=== PATIENT | female | born 1965 | race Caucasian/White ===

== ENCOUNTER 2016-12-02 14:20 | Emergency (ER) | payer OTHER, BC ==
[2016-12-02 14:35] VITALS: PULSE 72; RESP 20; TEMP 97.8
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
[2016-12-02] MEDS ORDERED: MORPHINE SULFATE 4 MG/ML SYRINGE IV STA (17:19)
--- NOTE | 2016-12-02 17:33 | XR ---
EXAMINATION TYPE: XR Hip RT and AP Pelvis DATE OF EXAM: 12/02/2016 5:28 PM COMPARISON: 08/11/2013 HISTORY: Right hip pain TECHNIQUE: A single AP view of the pelvis is obtained. Two views of the right hip are obtained. Findings The pelvic ring is intact. Proximal right femur and hip joint are intact. There is mild symmetric rossi tabular spurring. Sacroiliac joints are normal. CONCLUSION: Mild spurring of the acetabula. No fracture. No change compared to old exam.
[2016-12-02 17:56] VITALS: BP 177/83
== END 2016-12-02 17:56 | disposition home or self-care (01) ==
LOC: EC 14:20
DX: S06.0X0A Concussion without loss of consciousness, initial encounter (principal); S46.911A Strain of unspecified muscle, fascia and tendon at shoulder and upper arm level, right arm, initial encounter; S70.01XA Contusion of right hip, initial encounter; V49.49XA Driver injured in collision with other motor vehicles in traffic accident, initial encounter; Y92.410 Unspecified street and highway as the place of occurrence of the external cause; E11.9 Type 2 diabetes mellitus without complications; Z88.5 Allergy status to narcotic agent; K21.9 Gastro-esophageal reflux disease without esophagitis; I10 Essential (primary) hypertension; Z87.891 Personal history of nicotine dependence; Z79.899 Other long term (current) drug therapy; Z79.84 Long term (current) use of oral hypoglycemic drugs
CPT/HCPCS: 71020; 73502; 71100; 73030; 72125; 70450; 99284; 96372; J2270

== ENCOUNTER → 2016-12-19 | Outpatient (CLI) | payer OTHER ==
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
== END | disposition home or self-care (01) ==
LOC: RADCTMAIN 15:34
PROVIDERS: ATTEND Internal Medicine
DX: S79.911A Unspecified injury of right hip, initial encounter (principal)

== ENCOUNTER → 2017-01-06 | Outpatient (CLI) | payer OTHER ==
--- NOTE | 2017-01-06 09:13 | MR ---
EXAMINATION TYPE: MR hip RT wo con DATE OF EXAM: 01/06/2017 8:36 AM COMPARISON: NONE HISTORY: 51-year-old female Right hip pain, swelling, limited movement. TECHNIQUE: Multiplanar, multisequence images of the right hip were obtained without IV contrast. FINDINGS: No abnormal bone marrow edema within the hips. SI joints appear intact as does the sacrum. Evaluation of the right hip shows an area of curvilinear subchondral increased T2 and decreased T1 si gnal along the weightbearing aspect of the femoral head measuring 1.4 cm AP by 1.1 cm wide. This loca lizes to the subchondral bone. There is no discrete articular surface collapse seen. There is a small right hip joint effusion, asymmetrically greater to the contralateral side. The rectus femoris and hamstrings origins as well as the iliopsoas and gluteal insertions appear with in normal limits. There is normal course, caliber, and signal intensity of the sciatic nerves. No significant soft tiss ue abnormality seen. Uterus is surgically absent. There is a 3.0 cm simple cystic lesion associated with the left ovary. N o abnormal fluid collection in the pelvis. IMPRESSION: 1. A 1.4 cm curvilinear area of subchondral signal along the weightbearing aspect of the right femora l head. As this shows no surrounding bone marrow edema, differential considerations include an old in sufficiency/impaction fracture or a small area of prior AVN. Radiographic correlation may be helpful. A six-month follow-up MRI could assess any evolving changes. 2. Asymmetrically greater small right hip joint effusion. 3. A 3.0 cm simple left ovarian cyst. In a postmenopausal female, annual ultrasound surveillance is r ecommended.
== END | disposition home or self-care (01) ==
LOC: RADMRIMAIN 06:37
PROVIDERS: ATTEND Internal Medicine
DX: M25.451 Effusion, right hip (principal)

== ENCOUNTER → 2017-12-11 | Outpatient (CLI) | payer BC ==
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
== END | disposition home or self-care (01) ==
LOC: RADMRIMAIN 17:32
PROVIDERS: ATTEND Internal Medicine
DX: S83.242A Other tear of medial meniscus, current injury, left knee, initial encounter (principal); M25.862 Other specified joint disorders, left knee

== ENCOUNTER → 2018-10-26 | Outpatient (CLI) | payer OTHER ==
--- NOTE | 2018-10-30 11:45 | MM ---
Reason for exam: screening (asymptomatic). Last mammogram was performed 3 years ago. History: Patient is postmenopausal, has history of high-risk lesion on a previous biopsy at age 39, and is nulliparous. Left US Cyst Aspiration Ea Add of the left breast, October 19, 2010. Left US Cyst Aspiration of the left breast, October 19, 2010. Excisional biopsy of the left breast, April 12, 2007. High risk excisional biopsy of the left breast, 2003. Physical Findings: A clinical breast exam by your physician is recommended on an annual basis and results should be correlated with mammographic findings. MG Screening Mammo w CAD Bilateral CC and MLO view(s) were taken. Prior study comparison: October 21, 2015, right breast MG 3d work up w/cad RT. October 16, 2015, bilateral MG 3d screening mammo w/cad. The breast tissue is heterogeneously dense. This may lower the sensitivity of mammography. Focal asymmetry upper outer left breast middle third position. This finding is changed when compared with previous exams. ASSESSMENT: Incomplete: need additional imaging evaluation, BI-RAD 0 RECOMMENDATION: Special view mammogram of the left breast. If lesion persists on supplemental views, image directed ultrasound is recommended. [facility] will attempt to contact patient to return for supplemental views and ultrasound if indicated.
== END | disposition home or self-care (01) ==
LOC: RADMAMWWP 08:18
PROVIDERS: ATTEND Internal Medicine
DX: Z12.31 Encounter for screening mammogram for malignant neoplasm of breast (principal)
CPT/HCPCS: 77067

== ENCOUNTER 2018-11-05 08:21 | Emergency (ER) | payer OTHER ==
[2018-11-05 08:26] VITALS: TEMP 97.7
[2018-11-05] MEDS ORDERED: ETOMIDATE 2 MG/ML 10 ML VIAL IVP STA ×2 (08:50→09:18)
--- NOTE | 2018-11-05 09:02 | XR ---
Left ankle and left foot HISTORY: Trauma and pain 2 views of the left foot and 3 views of the left ankle are submitted. There is a posterior dislocation and likely associated trimalleolar fracture at the left tibiotalar j oint, minimally displaced fractures of the medial malleolus, posterior displacement at the distal fib ular comminuted fracture noted. Posterior aspect of the distal tibia shows questionable irregularity which may indicate underlying fracture. There is a plantar calcaneal spur. IMPRESSION: Fractures dislocation as described.
[2018-11-05 09:30] VITALS: RESP 18
--- NOTE | 2018-11-05 09:38 | ED ---
General Adult HPI - General Chief complaint: Extremity Injury, Lower Stated complaint: fall/ankle injury Time Seen by Provider: 11/05/18 09:00 Source: patient, EMS, RN notes reviewed Mode of arrival: EMS Limitations: no limitations - History of Present Illness Initial comments: This is a 53-year-old female who presents to the emergency department complaining of left ankle pain. Patient states she was coming out of the house down some steps when her ankle slipped out in front of her and she was unable to bear weight. Patient had a gross deformity and she mainly called EMS. EMS stated that they noticed gross deformities well however she was neurovascularly intact. Patient did receive fentanyl on the way in. Patient denies any knee pain or hip pain. Patient denies hitting her head or neck. Patient states he only pain is in her left ankle. - Related Data Home Medications Medication Instructions Recorded Confirmed Atenolol [Tenormin] 25 mg PO DAILY 10/14/14 11/05/18 Escitalopram [Lexapro] 10 mg PO DAILY 10/14/14 11/05/18 Omeprazole [PriLOSEC] 40 mg PO DAILY 10/14/14 11/05/18 Atorvastatin [Lipitor] 10 mg PO DAILY 11/05/18 11/05/18 Pioglitazone [Actos] 30 mg PO DAILY 11/05/18 11/05/18 Previous Rx's Medication Instructions Recorded Hydrocodone/Acetaminophen [[place] 1 each PO Q4HR PRN #14 tab 11/05/18 5-325] Ibuprofen [Motrin] 600 mg PO Q6HR PRN #20 tab 11/05/18 Allergies Allergy/AdvReac Type Severity Reaction Status Date / Time hydrocodone bitartrate Allergy flushed Verified 11/05/18 08:49 [From Vicodin] skin adhesive AdvReac blisters Verified 11/05/18 08:49 steri strips AdvReac blisters Uncoded 11/05/18 08:26 Review of Systems ROS Statement: Those systems with pertinent positive or pertinent negative responses have been documented in the HPI. ROS Other: All systems not noted in ROS Statement are negative. Past Medical History Past Medical History: Diabetes Mellitus, GERD/Reflux, Hypertension Additional Past Medical History / Comment(s): hx migraines,hx heart murmur, diet controlled diabetes History of Any Multi-Drug Resistant Organisms: None Reported Past Surgical History: Hysterectomy, Orthopedic Surgery Additional Past Surgical History / Comment(s): knee & ankle surg. breast biopsy Past Anesthesia/Blood Transfusion Reactions: Postoperative Nausea & Vomiting ( PONV) Additional Past Anesthesia/Blood Transfusion Reaction / Comment(s): slow to wake up @times Past Psychological History: No Psychological Hx Reported Smoking Status: Former smoker Past Alcohol Use History: None Reported Past Drug Use History: None Reported General Exam - General Exam Comments Initial Comments: GENERAL: Patient is well-developed and well-nourished. Patient is nontoxic and well- hydrated and is in moderate distress. ENT: Neck is soft and supple. No significant lymphadenopathy is noted. Oropharynx is clear. Moist mucous membranes. Neck has full range of motion without eliciting any pain. EYES: The sclera were anicteric and conjunctiva were pink and moist. Extraocular movements were intact and pupils were equal round and reactive to light. Eyelids were unremarkable. PULMONARY: Unlabored respirations. Good breath sounds bilaterally. No audible rales rhonchi or wheezing was noted. CARDIOVASCULAR: There is a regular rate and rhythm without any murmurs gallops or rubs. y SKIN: Skin is clear with no lesions or rashes and otherwise unremarkable. NEUROLOGIC: Patient is alert and oriented x3. Cranial nerves II through XII are grossly intact. Motor and sensory are also intact. Normal speech, volume and content. Symmetrical smile. MUSCULOSKELETAL: Left ankle looks grossly deformed she does have good cap refill and a good DP pulse. PSYCHIATRIC: Normal psychiatric evaluation. Limitations: no limitations Course Vital Signs 11/05/18 11/05/18 11/05/18 08:24 09:08 09:12 Temperature 97.7 F Pulse Rate 66 76 88 Respiratory 18 18 18 Rate Blood Pressure 152/76 175/73 203/120 O2 Sat by Pulse 95 98 100 Oximetry 11/05/18 11/05/18 11/05/18 09:21 09:24 09:29 Temperature Pulse Rate 81 81 79 Respiratory 24 20 18 Rate Blood Pressure 164/79 162/87 149/71 O2 Sat by Pulse 99 100 97 Oximetry Procedures - Orthopedic Fracture Reduction Fracture #1 Consent Obtained: verbal consent Side: left Analgesia: procedural sedation Technique: traction/counter-traction Post Reduction X-rays Demonstrate: anatomical reduction Post-Reduction Neuro Exam: intact Post-Reduction Vascular Exam: intact Splint Applied: Yes Patient Tolerated Procedure: well - Orthopedic Splinting/Casting Injury #1 Side: left Lower Extremity Injury Location: long leg Lower Extremity Immobilizer: stirrup splint - Procedural Sedation Procedural Sedation Start Time: 09:10 Procedural Sedation Stop Time: :40 Indications: fracture/dislocation reduction ASA Class: I Preparation: nurse monitoring applied, pulse oximeter, capnometry used IV Etomidate Dose (mgs): 20 Complications: none Patient Tolerated Procedure: well Medical Decision Making - Medical Decision Making Ankle shows a trimalleolar fracture with dislocation between the tibia and talus. Postreduction films show good placement of the tibial talus joint. Close to anatomically reduced I applied a splint. Disposition Clinical Impression: Trimalleolar fracture Disposition: HOME SELF-CARE Condition: Good Prescriptions: Hydrocodone/Acetaminophen [[place] 5-325] 1 each PO Q4HR PRN #14 tab PRN Reason: Pain Ibuprofen [Motrin] 600 mg PO Q6HR PRN #20 tab PRN Reason: For pain Is patient prescribed a controlled substance at d/c from ED?: Yes When asked, does pt state using other controlled substances?: Yes If prescribed controlled substance>3 days was MAPS reviewed?: Prescribed <3 Days If opioid is for acute pain is fill amount 7 days or less?: Yes If Rx opioid, was Start Talking consent form obtained?: Yes Referrals: Paulino Yates MD [Primary Care Provider] - 1-2 days Time of Disposition: 09:38
--- NOTE | 2018-11-05 09:40 | XR ---
Limited left ankle HISTORY: Post reduction 2 views of the left ankle There is been interval reduction of patient's dislocation. Persistent displacement of the posterior m alleolar fracture, medial and lateral malleolar fractures. IMPRESSION: Interval reduction of tibiotalar joint. Trimalleolar fractures.
[2018-11-05 10:26] VITALS: BP 144/71; PULSE 65
== END 2018-11-05 10:23 | disposition home or self-care (01) ==
LOC: EC 08:21
DX: S82.852A Displaced trimalleolar fracture of left lower leg, initial encounter for closed fracture (principal); I10 Essential (primary) hypertension; E11.9 Type 2 diabetes mellitus without complications; K21.9 Gastro-esophageal reflux disease without esophagitis; Z87.891 Personal history of nicotine dependence; Z88.5 Allergy status to narcotic agent; Z91.048 Other nonmedicinal substance allergy status; Z79.84 Long term (current) use of oral hypoglycemic drugs; Z79.899 Other long term (current) drug therapy; W01.0XXA Fall on same level from slipping, tripping and stumbling without subsequent striking against object, initial encounter; Y93.K1 Activity, walking an animal; Y92.008 Other place in unspecified non-institutional (private) residence as the place of occurrence of the external cause
CPT/HCPCS: 27818; 99152; 99153; 99284

== ENCOUNTER → 2018-11-15 | Outpatient (CLI) | payer OTHER ==
--- NOTE | 2018-11-29 13:19 | MM ---
Reason for exam: additional evaluation requested from abnormal screening. Last mammogram was performed 1 month ago. History: Patient is postmenopausal, has history of high-risk lesion on a previous biopsy at age 39, and is nulliparous. Left US Cyst Aspiration Ea Add of the left breast, October 19, 2010. Left US Cyst Aspiration of the left breast, October 19, 2010. Excisional biopsy of the left breast, April 12, 2007. High risk excisional biopsy of the left breast, 2003. Physical Findings: Nurse did not find any significant physical abnormalities on exam. MG Work Up Mamm w CAD LT Spot compression CC, MLO, and LM view(s) were taken of the left breast. Prior study comparison: October 26, 2018, bilateral MG screening mammo w CAD. October 21, 2015, right breast MG 3d work up w/cad RT. There is no discrete abnormality including area of concern. These results were verbally communicated with the patient and result sheet given to the patient on 11/15/18. ASSESSMENT: Probably benign, BI-RAD 3 RECOMMENDATION: Follow-up diagnostic mammogram of the left breast in 6 months.
== END | disposition home or self-care (01) ==
LOC: RADMAMWWP 13:40
PROVIDERS: ATTEND Internal Medicine
DX: R92.8 Other abnormal and inconclusive findings on diagnostic imaging of breast (principal)
CPT/HCPCS: 77065

== ENCOUNTER → 2018-11-19 | Outpatient (CLI) | payer OTHER ==
--- NOTE | 2018-11-19 08:42 | CT ---
EXAMINATION TYPE: CT ankle LT wo con DATE OF EXAM: 11/19/2018 COMPARISON: Left ankle x-ray November 05, 2018 HISTORY: Pain CT DLP: 240 mGycm Automated exposure control for dose reduction was used. FINDINGS: Overlying cast material is present. There is oblique distracted fracture through the lateral malleolus extending anteriorly inferiorly wi th 4 to 5 mm separation seen best on sagittal images. A few tiny fragments along posterior superior a spect of fracture are noted axial image 48. Fracture extends inferiorly to level of mortise were best seen on coronal images there is 2.5 mm linear ossific fracture fragment noted coronal image 30. There is comminuted slightly displaced fracture through the medial malleolus with several small fract ure fragments identified, some tiny fracture fragments extend towards the posterior aspect of the mor tise on axial image 63 and coronal image 37. There is comminuted fracture extension into the posterior malleolus with 2.2 x 0.8 cm triangular shap ed fracture fragment slightly posteriorly and superiorly displaced seen best sagittal image 44. Mild to moderate diffuse subcutaneous edema soft tissue swelling is seen most prominent over the late ral malleolus. Hindfoot and midfoot articulations are maintained. Distal Achilles tendon is intact. T here is moderate size inferior calcaneal spur seen. Normal sinus tarsi fat is noted. IMPRESSION: TRIMALLEOLAR FRACTURES DETAILED ABOVE.
== END ==
LOC: RADCTMAIN 07:00
PROVIDERS: ATTEND Orthopaedic Surgery
DX: S82.852A Displaced trimalleolar fracture of left lower leg, initial encounter for closed fracture (principal)

== ENCOUNTER → 2018-11-23 | Outpatient (CLI) | payer OTHER ==
[2018-11-23 14:26] LABS: HCT 43.3 % (34.0-46.0); HGB 14.2 gm/dL (11.4-16.0); MCH 29.2 pg (25.0-35.0); MCHC 32.9 g/dL (31.0-37.0); MCV 88.9 fL (80.0-100.0); Mean Platelet Volume 6.9; Platelet Count 277 k/uL (150-450); RBC 4.87 m/uL (3.80-5.40); RDW 12.6 % (11.5-15.5); WBC 5.2 k/uL (3.8-10.6)
== END ==
LOC: LABPAT 13:21
PROVIDERS: ATTEND Orthopaedic Surgery
DX: Z01.818 Encounter for other preprocedural examination (principal); Z01.812 Encounter for preprocedural laboratory examination
CPT/HCPCS: 85027; 93005

== ENCOUNTER 2018-11-26 12:22 | Day surgery (SDC) | payer OTHER ==
[2018-11-23 09:03] VITALS: BMI 33.1
[~2018-11-26 12:22] MED LIST: DEXAMETHASONE SOD PHOSPHATE 10 MG/ML 1 ML VIAL IV ONE; LACTATED RINGERS 1,000 ML IV SCH; LIDOCAINE 1% 20 ML VIAL (10MG/ML) FOR IV START INTRADERMA PRN; MIDAZOLAM (PF) 2 MG/2 ML VIAL IV PRN; ceFAZolin IN SWFI 2 GM/20 ML SYRINGE IVP ONE; fentaNYL (PF) 50 MCG/ML 2 ML AMP IV PRN; fentaNYL (PF) 50 MCG/ML 20 ML VIAL IVP PRN
[2018-11-26] MEDS ORDERED: LIDOCAINE 1% 20 ML VIAL (10MG/ML) FOR IV START IV ONE (12:45)
[2018-11-26 13:01] LABS: Glucose,Whole Blood 137 mg/dL (75-99)
[2018-11-26] MEDS ORDERED: MIDAZOLAM 2 MG/2 ML VIAL IV ONE (13:54)
[2018-11-26] MEDS ORDERED: ONDANSETRON 4 MG/2 ML VIAL IVP ONE ×2 (14:15→18:03)
[2018-11-26] MEDS ORDERED: DEXAMETHASONE SOD PHOSPHATE 10 MG/ML 1 ML VIAL IV ONE (14:15)
[2018-11-26 14:18] VITALS: RESP 16
--- NOTE | 2018-11-26 14:20 | P.HPOR ---
History of Present Illness H&P Date: 11/26/18 The patient is a 53 yo female with DM2 who presents for operative fixation of a left ankle fracture. Past Medical History Past Medical History: Diabetes Mellitus, GERD/Reflux, Hyperlipidemia, Hypertension Additional Past Medical History / Comment(s): Hx migraines, hx heart murmur, diet controlled diabetes. History of Any Multi-Drug Resistant Organisms: None Reported Past Surgical History: Breast Surgery, Cholecystectomy, Hysterectomy, Orthopedic Surgery Additional Past Surgical History / Comment(s): Right knee & right ankle surgery , breast biopsy. Past Anesthesia/Blood Transfusion Reactions: Postoperative Nausea & Vomiting ( PONV) Additional Past Anesthesia/Blood Transfusion Reaction / Comment(s): Slow to wake up @times. Past Psychological History: Anxiety Smoking Status: Former smoker Past Alcohol Use History: Rare Additional Past Alcohol Use History / Comment(s): Quit smoking in 1999, smoked on and off for 22 yrs, <1PPD. Past Drug Use History: None Reported - Past Family History Mother Family Medical History: No Reported History Medications and Allergies Home Medications Medication Instructions Recorded Confirmed Type Atenolol [Tenormin] 25 mg PO QAM 10/14/14 11/26/18 History Escitalopram [Lexapro] 10 mg PO QAM 10/14/14 11/26/18 History Omeprazole [PriLOSEC] 40 mg PO QAM 10/14/14 11/26/18 History Atorvastatin [Lipitor] 10 mg PO QAM 11/05/18 11/26/18 History Ibuprofen [Motrin] 600 mg PO Q6HR PRN #20 tab 11/05/18 11/26/18 Rx Pioglitazone [Actos] 30 mg PO QAM 11/05/18 11/26/18 History Acetaminophen-Codeine 300-30mg 1 tab PO Q4-6H PRN 11/23/18 11/26/18 History [Tylenol w/codeine #3] Allergies Allergy/AdvReac Type Severity Reaction Status Date / Time hydrocodone bitartrate Allergy flushed Verified 11/26/18 12:49 [From Vicodin] skin latex Allergy Rash/Hives Verified 11/26/18 12:49 adhesive AdvReac blisters Verified 11/26/18 12:49 steri strips AdvReac blisters Uncoded 11/26/18 12:49 Physical Examination Left LE: Splint removed. Wrinkling of the skin. Results - Labs Labs: Abnormal Lab Results - Last 24 Hours (Table) 11/26/18 Range/Units 12:55 POC Glucose (mg/dL) 137 H (75-99) mg/dL Assessment and Plan (1) Trimalleolar fracture Current Visit: No Status: Acute Code(s): S82.853A - DISPLACED TRIMALLEOLAR FRACTURE OF UNSP LOWER LEG, INIT SNOMED Code(s): 304801987 Plan: Patient presents for ORIF left trimalleolar ankle fracture. She understands the risks and complications of surgery.
--- NOTE | 2018-11-26 14:37 | P.ONQ ---
Anesthesiology Proc Note - PNB - Peripheral Nerve Block Performed Left Popliteal Single Indication: Acute Post-Operative Pain, Requested by physician Specifically requested for management of pain by : Sarath Rodriguez Sedation Type: Sedate with meaningful contact maintained Preparation: Sterile Prep Position: Supine Catheter: None Needle Size: 100mm (4"), Other (see comment) (Pajunk needle) Technique: Ultrasound Injectate: 0.5% Ropivacaine (see comment for volume) (20cc and 10cc lidocaine 2 % with epinephrine) Blood Aspirated: No Pain Paresthesia on Injection Noted: No Resistance on Injection: Normal Events: Uneventful and Well Tolerated
--- NOTE | 2018-11-26 14:39 | P.ONQ ---
Anesthesiology Proc Note - PNB - Peripheral Nerve Block Performed Left Adductor Canal Single Time Out Performed: Yes Indication: Acute Post-Operative Pain, Dx/Pain Location (left ankle) Specifically requested for management of pain by DrAugustine: Sarath Rodriguez Sedation Type: Sedate with meaningful contact maintained Preparation: Sterile Prep Position: Supine Catheter: None Needle Size: 100mm (4"), Other (see comment) (pajunk) Needle Gauge: 21 Technique: Ultrasound Injectate: 0.5% Ropivacaine (see comment for volume) (10cc and lidocaine 2% with epinephrine) Blood Aspirated: No Pain Paresthesia on Injection Noted: No Resistance on Injection: Normal Events: Uneventful and Well Tolerated
[2018-11-26] MEDS ORDERED: ROCURONIUM BROMIDE 10 MG/ML 10 ML VIAL IV ONE (15:06)
[2018-11-26] MEDS ORDERED: NEOSTIGMINE 1 MG/ML 10 ML VIAL ONE (15:06)
[2018-11-26] MEDS ORDERED: MIDAZOLAM 2 MG/2 ML VIAL ONE (15:06)
[2018-11-26] MEDS ORDERED: LIDOCAINE 1% INJ 10MG/ML (20 ML MDV) ONE (15:06)
[2018-11-26] MEDS ORDERED: ePHEDrine SULFATE/0.9% NACL/PF 50 MG/5 ML SYRINGE IV ONE (15:06)
[2018-11-26] MEDS ORDERED: SUCCINYLCHOLINE CHLORIDE 100 MG/5 ML SYR IV ONE (15:06)
[2018-11-26] MEDS ORDERED: fentaNYL (PF) 50 MCG/ML 2 ML AMP ONE (15:06)
[2018-11-26] MEDS ORDERED: HYDROmorphone (PF) 1 MG/ML ONE (15:06)
[2018-11-26] MEDS ORDERED: PROPOFOL 10 MG/ML 20 ML VIAL IV ONE (15:06)
[2018-11-26] MEDS ORDERED: GLYCOPYRROLATE 0.2 MG/ML 2 ML VIAL ONE (15:06)
[2018-11-26] MEDS ORDERED: LACTATED RINGERS 1,000 ML IV ONE ×2 (16:08→18:04)
--- NOTE | 2018-11-26 16:48 | P.OP ---
Date of Procedure: 11/26/18 Preoperative Diagnosis: 1. Closed left trimalleolar ankle fracture dislocation 2. Type 2 diabetes 3. Prior cigarette smoker Postoperative Diagnosis: Same Procedure(s) Performed: 1. Open reduction and internal fixation of left lateral malleolus fracture 2. Nonoperative management of left medial and posterior malleolus fracture 3. Manual application of joint stress by physician for radiography, left ankle 4. Application of short-leg splint by physician, left ankle Anesthesia: RAMYA Surgeon: Sarath Rodriguez Machine Printer Hose #1: Hyacinth Palm Estimated Blood Loss (ml): 25 IV fluids (ml): 900 Pathology: none sent Condition: stable Disposition: PACU Indications for Procedure: The patient is a very pleasant 53-year-old female with a medical history significant for diabetes presented to my office with a left trimalleolar ankle fracture dislocation. She was sent for a computed tomography scan. I met with the patient following her computed tomography scan to discuss surgery. Due to the unstable nature of her fracture I recommended operative fixation. We discussed potential risks and complications of surgery including but not limited to risk of anesthesia, superficial infection, deep infection, delayed wound healing, superficial wound necrosis, deep wound necrosis, nonunion of her fracture, malunion of her fracture, postoperative displacement of the ankle mortise, failure of hardware, DVT, PE, other medical complications, posttraumatic arthritis, chronic pain, chronic swelling, and inability to regain preinjury level of function, and possibly loss of life or limb. The patient voiced understanding of this and also acknowledges that she is at a higher risk having a complication due to her diabetes. She provided her verbal and written consent to go forward with surgery. Description of Procedure: The patient is identified in preoperative holding and the correct left ankle was marked with my initials. Reviewed the consent form with the patient and her family. All their questions were answered. The patient was given a popliteal and saphenous nerve block by anesthesia. Her splint was taken down and the soft tissues was inspected. There was wrinkling of the skin. She was then brought back to the operating room. She was positioned on the or table where a general anesthetic was administered. A tourniquet was applied to the proximal aspect the left leg. Prior to starting C-arm fluoroscopy was brought in and imaging was obtained. The ankle mortise was unstable. The medial and posterior malleolus was minimally displaced. The left leg was then prepped and draped in the standard sterile fashion. Prior to starting surgery timeout was performed identifying the correct patient, operative extremity, and procedure. The patient's leg was then elevated, exsanguinated with an Esmarch bandage, and the tourniquet was inflated to 250 mmHg. X I began by outlining an incision to the lateral aspect of the distal fibula. Skin incision with a scalpel and dissection was carried down carefully through the subcu tissue with tenotomy scissors. The periosteum was elevated off the distal fibula. The fracture site was gently debrided using a scalpel. The fracture was reduced using longitudinal traction and rotation. A point-to- point reduction clamp was used to gently brandt the fracture reduction in place and hold the reduction. Fluoroscopy was used to verify the reduction. The fibula appeared to be anatomically reduced and out to length. A lag screw was then placed across the fracture. A 2.7 mm drill bit was used to create a gliding hole of the anterior cortex of the shaft and a 2.0 mm drill was used to create threaded home the distal fragment. A fully threaded 2.7 mm screw was placed generated excellent compression across the fracture. And one third tubular plate was then placed over the lateral aspect of the distal fibula. 3.5 mm nonlocking screws were placed proximally to the fracture and 4.0 mm cancellus screws were placed distal to the fracture. At this point fluoroscopy was brought in to assess the medial and posterior fractures. On the mortise view there did not appear to be any significant displacement of the medial malleolus. On the lateral view the posterior malleolus appeared minimally displaced and there was no signs of instability. Due to the patient's diabetes and comminution seen on computed tomography scan as well as stability on stress x-rays in the operating room I elected to treat both the medial and posterior fractures nonoperatively. A 3.5 mm syndesmotic screw was placed for additional fixation. Final fluoroscopic images were taken. The lateral wound was copiously irrigated and closed in layers. A sterile dressing consisting of Betadine Adaptic, 4 x 4, and web roll was applied. A bulky Alicia splint was placed at the ankle neutral. The patient was then awoken from her anesthetic, transferred from the or table to a gurney, and brought to PACU without the procedure well. Hyacinth Palm PAC was required as a skilled hearing aid assistant for patient positioning, surgical exposure, reduction of fracture, placement of hardware, closure of wound, and application of splint. Plan: The patient is going to be nonweightbearing in a postoperative bulky Alicia splint. She'll follow-up in 2 weeks for splint removal and x-rays out of her splint. She'll be given aspirin 325 mg for DVT prophylaxis. She will get Tylenol No. 3 for pain.
[2018-11-26 17:14] VITALS: TEMP 97.2
--- NOTE | 2018-11-26 18:39 | FL ---
EXAMINATION TYPE: FL guidance operating room, XR ankle complete LT DATE OF EXAM: 11/26/2018 COMPARISON: NONE HISTORY: 53 year-old female left ankle ORIF FINDINGS: Lateral sideplate and screw fixation of the distal fibula as well as transit syndesmotic screw fixati on. FLUOROSCOPY Fluoroscopy time of 36 seconds was used during left ankle ORIF. 3 image/s document/s the procedure. IMPRESSION: Intraoperative fluoroscopy as above.
[2018-11-26 18:53] VITALS: BP 139/62; PULSE 72
== END 2018-11-26 19:06 | disposition home or self-care (01) ==
LOC: OR 12:22
PROVIDERS: ATTEND Orthopaedic Surgery
DX: S82.852A Displaced trimalleolar fracture of left lower leg, initial encounter for closed fracture (principal); E11.9 Type 2 diabetes mellitus without complications; E78.5 Hyperlipidemia, unspecified; F41.9 Anxiety disorder, unspecified; I10 Essential (primary) hypertension; K21.9 Gastro-esophageal reflux disease without esophagitis; Z87.891 Personal history of nicotine dependence; Z88.5 Allergy status to narcotic agent; Z79.84 Long term (current) use of oral hypoglycemic drugs; Z79.899 Other long term (current) drug therapy; Z91.040 Latex allergy status; Z91.048 Other nonmedicinal substance allergy status; Z90.49 Acquired absence of other specified parts of digestive tract; Z79.891 Long term (current) use of opiate analgesic
CPT/HCPCS: 27792; 64450; 64447; 73610; C1713; J2250; J1100; J2710; J2405; J2001; J3010; J1170; J0330; J2704; J0690

== ENCOUNTER 2020-03-25 10:17 | Emergency (ER) | payer OTHER ==
[2020-03-25] MEDS ORDERED: IBUPROFEN 800 MG TAB PO STA (10:50)
--- NOTE | 2020-03-25 10:54 | ED ---
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 She complains of pain to the left shoulder she states her arm when above her head when she landed. She points to the upper left anterior shoulder. No head neck or back pain no other injury reported. Patient is dominant left-handed. No sensorimotor or vascular complaints. She does state that the pain is 7/10 in severity. MD Complaint: Injury to:: left, shoulder - Related Data Home Medications Medication Instructions Recorded Confirmed Atenolol [Tenormin] 25 mg PO QAM 10/14/14 11/26/18 Escitalopram [Lexapro] 10 mg PO QAM 10/14/14 11/26/18 Omeprazole [PriLOSEC] 40 mg PO QAM 10/14/14 11/26/18 Atorvastatin [Lipitor] 10 mg PO QAM 11/05/18 11/26/18 Pioglitazone [Actos] 30 mg PO QAM 11/05/18 11/26/18 Acetaminophen-Codeine 300-30mg 1 tab PO Q4-6H PRN 11/23/18 11/26/18 [Tylenol w/codeine #3] Previous Rx's Medication Instructions Recorded Ibuprofen [Motrin] 600 mg PO Q6HR PRN #20 tab 11/05/18 Acetaminophen-Codeine 300-30mg 1 tab PO Q4H PRN 5 Days #30 tablet 11/26/18 [Tylenol w/codeine #3] Aspirin 325 mg PO DAILY #14 tab 11/26/18 Docusate [Colace] 100 mg PO BID #60 capsule 11/26/18 Ibuprofen 800 mg PO Q6HR PRN #20 tablet 03/25/20 Orphenadrine [Norflex] 100 mg PO Q12H #7 tablet.er 03/25/20 Allergies Allergy/AdvReac Type Severity Reaction Status Date / Time hydrocodone bitartrate Allergy flushed Verified 03/25/20 10:23 [From Vicodin] skin latex Allergy Rash/Hives Verified 03/25/20 10:23 adhesive AdvReac blisters Verified 03/25/20 10:23 steri strips AdvReac blisters Uncoded 03/25/20 10:23 Review of Systems ROS Statement: Those systems with pertinent positive or pertinent negative responses have been documented in the HPI. ROS Other: All systems not noted in ROS Statement are negative. Past Medical History Past Medical History: Diabetes Mellitus, GERD/Reflux, Hyperlipidemia, Hypertension Additional Past Medical History / Comment(s): Hx migraines, hx heart murmur, diet controlled diabetes. History of Any Multi-Drug Resistant Organisms: None Reported Past Surgical History: Breast Surgery, Cholecystectomy, Hysterectomy, Orthopedic Surgery Additional Past Surgical History / Comment(s): Right knee & right ankle surgery, breast biopsy.. left foot plate and screws Past Anesthesia/Blood Transfusion Reactions: Postoperative Nausea & Vomiting (PONV) Additional Past Anesthesia/Blood Transfusion Reaction / Comment(s): Slow to wake up @times. Past Psychological History: Anxiety Smoking Status: Former smoker Past Alcohol Use History: Rare Past Drug Use History: None Reported - Past Family History Mother Family Medical History: No Reported History General Exam - General Exam Comments Initial Comments: This is a well-developed well-nourished awake alert oriented 3 female she demonstrates a Yris Coma Scale of 15 Limitations: no limitations General appearance: alert, in no apparent distress Head exam: Present: atraumatic, normocephalic, normal inspection Eye exam: Present: normal appearance, PERRL, EOMI. Absent: scleral icterus, conjunctival injection, periorbital swelling ENT exam: Present: normal exam, mucous membranes moist Neck exam: Present: normal inspection, full ROM. Absent: tenderness, menin gismus, lymphadenopathy Respiratory exam: Present: normal lung sounds bilaterally, other (Tennis palpation along the left distal clavicle note definite step-off or crepitation). Absent: respiratory distress, wheezes, rales, rhonchi, stridor Cardiovascular Exam: Present: regular rate, normal rhythm, normal heart sounds. Absent: systolic murmur, diastolic murmur, rubs, gallop, clicks GI/Abdominal exam: Present: soft, normal bowel sounds. Absent: distended, tenderness, guarding, rebound, rigid Extremities exam: Present: normal inspection, full ROM, normal capillary refill, other (Tennis palpation of the proximal humerus and shoulder no evidence of subluxation no step-off or crepitation). Absent: tenderness, pedal edema, joint swelling, calf tenderness Back exam: Present: normal inspection, full ROM. Absent: tenderness Neurological exam: Present: alert, oriented X3, CN II-XII intact Psychiatric exam: Present: normal affect, normal mood Skin exam: Present: warm, dry, intact, normal color. Absent: rash Course Vital Signs 03/25/20 10:18 Temperature 98.5 F Pulse Rate 62 Respiratory 16 Rate Blood Pressure 150/72 O2 Sat by Pulse 97 Oximetry Medical Decision Making - Medical Decision Making I did discuss the findings with the patient she will be placed in a sling she'll be discharged with orthopedic referral. She has seen Dr. Rodriguez in the past. The presentation consistent with a left shoulder strain. He'll be given a note for work today. She is off for this coming weekend. She was placed on a course of anti-inflammatories and muscle relaxants. - Radiology Data Radiology results: report reviewed (I did review the imaging and report no acute findings.), image reviewed Disposition Clinical Impression: Left shoulder strain, Fall Disposition: HOME SELF-CARE Condition: Good Instructions (If sedation given, give patient instructions): Rotator Cuff Injury (ED) Prescriptions: Ibuprofen 800 mg PO Q6HR PRN #20 tablet PRN Reason: Pain Orphenadrine [Norflex] 100 mg PO Q12H #7 tablet.er Is patient prescribed a controlled substance at d/c from ED?: No Referrals: Paulino Yates MD [Primary Care Provider] - 1-2 days Sarath Rodriguez MD [Medical Doctor] - 1-2 days
--- NOTE | 2020-03-25 11:12 | XR ---
EXAMINATION TYPE: XR clavicle LT DATE OF EXAM: 03/25/2020 COMPARISON: Left shoulder HISTORY: Fall with pain TECHNIQUE: 2 view left clavicle FINDINGS: There is some hypertrophy at the left acromioclavicular junction. Sternal clavicular juncti on appears normal. No acute fractures of the left clavicle are evident. IMPRESSION: 1. No acute osseous abnormality left clavicle.
--- NOTE | 2020-03-25 11:13 | XR ---
EXAMINATION TYPE: XR shoulder complete LT DATE OF EXAM: 03/25/2020 COMPARISON: NONE HISTORY: Pain TECHNIQUE: Shoulder examined in 3 views FINDINGS: The humeral head articulates with the glenoid. The acromio-clavicular junction is hypertrophied. Some inferior spurring is noted. No acute fractures or dislocations are evident. A follow up study can be performed 7-10 days from acute trauma for continued pain. IMPRESSION: 1. No acute osseous abnormality left shoulder.
[2020-03-25 11:35] VITALS: BP 137/66; PULSE 58; RESP 18; TEMP 98.1
== END 2020-03-25 11:34 | disposition home or self-care (01) ==
LOC: EC 10:17
DX: S46.912A Strain of unspecified muscle, fascia and tendon at shoulder and upper arm level, left arm, initial encounter (principal); E11.9 Type 2 diabetes mellitus without complications; E78.5 Hyperlipidemia, unspecified; I10 Essential (primary) hypertension; K21.9 Gastro-esophageal reflux disease without esophagitis; F41.9 Anxiety disorder, unspecified; Z79.84 Long term (current) use of oral hypoglycemic drugs; Z79.899 Other long term (current) drug therapy; Z88.5 Allergy status to narcotic agent; Z88.6 Allergy status to analgesic agent; Z91.040 Latex allergy status; Z91.048 Other nonmedicinal substance allergy status; Z87.891 Personal history of nicotine dependence; W01.0XXA Fall on same level from slipping, tripping and stumbling without subsequent striking against object, initial encounter
CPT/HCPCS: 99283

== ENCOUNTER → 2020-04-07 | Outpatient (CLI) | payer OTHER ==
--- NOTE | 2020-04-08 18:10 | MR ---
EXAMINATION TYPE: MR shoulder LT wo con DATE OF EXAM: 04/07/2020 COMPARISON: None HISTORY: Lt shoulder pain/injury Technique: Multiplanar, multiecho imaging on a 3.0 Samra magnet is performed through the shoulder. Findings: Long head of the biceps tendon is within the bicipital groove. Glenoid labrum as visualized on this noncontrast study appears intact on this noncontrast limited exa m. Rotator cuff tendons are evaluated. No retraction or perforation is evident. No fluid in the subacro mial bursa or subdeltoid bursa is evident. No significant joint effusion is present. The acromioclavicular junction is hypertrophied. No downward spurring is evident however. IMPRESSIONS: 1. Suspicious acute changes not identified.
== END | disposition home or self-care (01) ==
LOC: RADMRIMAIN 09:19
PROVIDERS: ATTEND Emergency Medicine
DX: S43.402D Unspecified sprain of left shoulder joint, subsequent encounter (principal)

== ENCOUNTER → 2020-11-04 | Outpatient (CLI) | payer OTHER | END | disposition home or self-care (01) | LOC: LABWHC1 15:50 | PROVIDERS: ATTEND Internal Medicine | DX: U07.1 COVID-19 (principal) | CPT/HCPCS: 36415; U0003; 86769 ==

== ENCOUNTER → 2021-04-30 | Outpatient (CLI) | payer OTHER ==
--- NOTE | 2021-04-30 12:20 | MM ---
Reason for exam: additional evaluation requested from prior study. Last mammogram was performed 2 years and 5 months ago. History: Patient is postmenopausal, has history of high-risk lesion on a previous biopsy at age 39, and is nulliparous. Left US Cyst Aspiration Ea Add of the left breast, October 19, 2010. Left US Cyst Aspiration of the left breast, October 19, 2010. Excisional biopsy of the left breast, April 12, 2007. High risk excisional biopsy of the left breast, 2003. Physical Findings: Nurse did not find any significant physical abnormalities on exam. MG Diagnostic Mammo w CAD KYLEE Bilateral CC and MLO view(s) were taken. CCRM, CCRL, and LM view(s) were taken of the left breast. Prior study comparison: November 15, 2018, left breast MG work up mamm w CAD LT. October 26, 2018, bilateral MG screening mammo w CAD. The breast tissue is heterogeneously dense. This may lower the sensitivity of mammography. Left post benign lumpectomy change. These results were verbally communicated with the patient and result sheet given to the patient on 04/30/21. ASSESSMENT: Benign, BI-RAD 2 RECOMMENDATION: Routine screening mammogram of both breasts in 1 year.
== END | disposition home or self-care (01) ==
LOC: RADMAMWWP 11:05
PROVIDERS: ATTEND Internal Medicine
DX: R92.8 Other abnormal and inconclusive findings on diagnostic imaging of breast (principal); Z78.0 Asymptomatic menopausal state
CPT/HCPCS: 77066

== ENCOUNTER 2021-09-13 15:30 | Emergency (ER) | payer OTHER ==
[2021-09-13] MEDS ORDERED: KETOROLAC 15 MG/ML 1 ML VIAL IM STA (19:29)
[2021-09-13] MEDS ORDERED: IPRATROPIUM-ALBUTEROL 3 ML NEB INHALATION STA (19:54)
[2021-09-13] MEDS ORDERED: ACETAMINOPHEN TAB 500 MG TAB PO STA (19:54)
--- NOTE | 2021-09-13 19:56 | ED ---
General Adult HPI - General Chief complaint: Upper Respiratory Infection Stated complaint: +Pneumonia Per PCP Time Seen by Provider: 09/13/21 19:28 Source: patient Mode of arrival: ambulatory Limitations: no limitations - History of Present Illness Initial comments: 56-year-old female with a past medical history of diabetes mellitus, GERD, hyperlipidemia, hypertension, migraines presents to the emergency room for a chief complaint of cough. Patient has had a cough for the past 4-5 days. Patient states that she was seen at urgent care and clinically diagnosed with pneumonia. Patient started on a Medrol Dosepak and amoxicillin. Patient states that she is getting worse. States her coughing has been more persistent. Denies chest pain or shortness of breath. ptt states she has had low-grade temp with the highest 99.9 max.Patient has no other complaints at this time including shortness of breath, chest pain, abdominal pain, nausea or vomiting, headache, or visual changes. - Related Data Home Medications Medication Instructions Recorded Confirmed Escitalopram [Lexapro] 10 mg PO DAILY 10/14/14 09/13/21 Omeprazole [PriLOSEC] 40 mg PO DAILY 10/14/14 09/13/21 atenoloL [Tenormin] 25 mg PO BID 10/14/14 09/13/21 Pioglitazone [Actos] 30 mg PO DAILY 11/05/18 09/13/21 Albuterol Inhaler [Ventolin Hfa 2 puff INHALATION RT-QID PRN 09/13/21 09/13/21 Inhaler] Albuterol Nebulized [Ventolin 2.5 mg INHALATION RT-Q6H PRN 09/13/21 09/13/21 Nebulized] Amoxicillin 875 mg PO BID 09/13/21 09/13/21 Atorvastatin Calcium [Lipitor] 40 mg PO DAILY 09/13/21 09/13/21 Benzonatate [Tessalon Perles] 100 mg PO TID PRN 09/13/21 09/13/21 methylPREDNISolone [Medrol Dose See Taper PO DIRECTED 09/13/21 09/13/21 Pack] Previous Rx's Medication Instructions Recorded predniSONE 50 mg PO DAILY #4 tablet 09/13/21 Allergies Allergy/AdvReac Type Severity Reaction Status Date / Time hydrocodone bitartrate Allergy flushed Verified 09/13/21 21:35 [From Vicodin] skin latex Allergy Rash/Hives Verified 09/13/21 21:35 adhesive AdvReac blisters Verified 09/13/21 21:35 steri strips AdvReac blisters Uncoded 09/13/21 17:03 Review of Systems ROS Statement: Those systems with pertinent positive or pertinent negative responses have been documented in the HPI. ROS Other: All systems not noted in ROS Statement are negative. Past Medical History Past Medical History: Diabetes Mellitus, GERD/Reflux, Hyperlipidemia, Hypertension Additional Past Medical History / Comment(s): Hx migraines, hx heart murmur, diet controlled diabetes. History of Any Multi-Drug Resistant Organisms: None Reported Past Surgical History: Breast Surgery, Cholecystectomy, Hysterectomy, Orthopedic Surgery Additional Past Surgical History / Comment(s): Right knee & right ankle surgery, breast biopsy.. left foot plate and screws Past Anesthesia/Blood Transfusion Reactions: Postoperative Nausea & Vomiting (PONV) Additional Past Anesthesia/Blood Transfusion Reaction / Comment(s): Slow to wake up @times. Past Psychological History: Anxiety Smoking Status: Never smoker Past Alcohol Use History: Rare Past Drug Use History: None Reported - Past Family History Mother Family Medical History: No Reported History General Exam Limitations: no limitations General appearance: alert, in no apparent distress Head exam: Present: atraumatic Eye exam: Present: normal appearance, PERRL, EOMI. Absent: scleral icterus, conjunctival injection ENT exam: Present: normal exam, normal oropharynx, mucous membranes moist, normal external ear exam Neck exam: Present: normal inspection, full ROM. Absent: tenderness Respiratory exam: Present: normal lung sounds bilaterally, other (Cough noted). Absent: respiratory distress, wheezes Cardiovascular Exam: Present: regular rate, normal rhythm, normal heart sounds GI/Abdominal exam: Present: soft, normal bowel sounds. Absent: distended, tenderness Course Vital Signs 09/13/21 09/13/21 09/13/21 17:01 20:31 20:36 Temperature 99.8 F H Pulse Rate 60 66 66 Respiratory 24 Rate Blood Pressure 178/81 O2 Sat by Pulse 97 Oximetry 09/13/21 20:44 Temperature Pulse Rate Respiratory 20 Rate Blood Pressure O2 Sat by Pulse Oximetry Medical Decision Making - Medical Decision Making Vitals are stable. Chest x-ray shows no pneumonia. Influenza are as seen coronavirus negative. Patient is already on amoxicillin and breathing treatment. She did do a Medrol Dosepak but states her cough is worsening. We will put her on a few more days of steroids. She will continue [id number] supportive medication. She will return here for any worsening symptoms. - Lab Data Lab Results 09/13/21 Range/Units 20:14 Influenza Type A (PCR) Not Detected (Not Detectd) Influenza Type B (PCR) Not Detected (Not Detectd) RSV (PCR) Not Detected (Not Detectd) SARS-CoV-2 (PCR) Not Detected (Not Detectd) Disposition Clinical Impression: Cough Disposition: HOME SELF-CARE Condition: Good Additional Instructions: Please take steroid as directed. Please follow-up with your doctor in one to 2 days. Return to the emergency room for any worsening symptoms. Prescriptions: predniSONE 50 mg PO DAILY #4 tablet Is patient prescribed a controlled substance at d/c from ED?: No Referrals: Paulino Yates MD [Primary Care Provider] - 1-2 days Time of Disposition: 21:53
--- NOTE | 2021-09-13 20:36 | XR ---
EXAMINATION TYPE: XR chest 2V DATE OF EXAM: 09/13/2021 COMPARISON: NONE HISTORY: Cough TECHNIQUE: Frontal and lateral views of the chest are obtained. FINDINGS: There is no focal air space opacity, pleural effusion, or pneumothorax seen. The cardiac silhouette size is within normal limits. The osseous structures are intact. IMPRESSION: No acute cardiopulmonary process.
[2021-09-13 20:47] VITALS: RESP 20
[2021-09-13] MEDS ORDERED: methylPREDNISolone SOD SUCCI 125 MG/2 ML VIAL IM STA (21:50)
[2021-09-13 22:33] VITALS: BP 138/78; PULSE 67; TEMP 99.1
== END 2021-09-13 22:36 | disposition home or self-care (01) ==
LOC: EC 15:30
DX: R05.9 Cough, unspecified (principal); E11.9 Type 2 diabetes mellitus without complications; I10 Essential (primary) hypertension; K21.9 Gastro-esophageal reflux disease without esophagitis; G43.909 Migraine, unspecified, not intractable, without status migrainosus; E78.5 Hyperlipidemia, unspecified; Z91.09 Other allergy status, other than to drugs and biological substances; Z88.5 Allergy status to narcotic agent; Z79.899 Other long term (current) drug therapy; Z79.4 Long term (current) use of insulin; Z20.822 Contact with and (suspected) exposure to COVID-19; Z91.040 Latex allergy status
CPT/HCPCS: 99284 ×2; 96372 ×2; 94640; 87636; 71046; J2930

== ENCOUNTER 2022-04-22 14:37 | Day surgery (SDC) | payer OTHER ==
[2022-04-21 10:53] VITALS: BMI 35.6
[2022-04-22] MEDS ORDERED: ONDANSETRON 4 MG/2 ML VIAL IVP ONE (15:04)
[2022-04-22] MEDS ORDERED: fentaNYL (PF) 50 MCG/ML 2 ML AMP IV PRN (15:04)
[2022-04-22] MEDS ORDERED: LIDOCAINE 1% (10MG/ML) FOR IV START INTRADERMA PRN (15:04)
[2022-04-22] MEDS ORDERED: LACTATED RINGERS 1,000 ML IV SCH (15:04)
[2022-04-22 15:05] LABS: Glucose,Whole Blood 119 mg/dL (75-99)
[2022-04-22] MEDS ORDERED: ONDANSETRON 4 MG/2 ML VIAL ONE (15:07)
[2022-04-22] MEDS ORDERED: LIDOCAINE 2% INJ 20 MG/ML (2 ML VIAL) ONE (18:28)
[2022-04-22] MEDS ORDERED: PROPOFOL 10 MG/ML 20 ML VIAL IV ONE (18:28)
[2022-04-22] MEDS ORDERED: GLYCOPYRROLATE 0.2 MG/ML 2 ML VIAL ONE (18:28)
[2022-04-22] MEDS ORDERED: MIDAZOLAM 2 MG/2 ML VIAL ONE (18:28)
[2022-04-22] MEDS ORDERED: fentaNYL (PF) 50 MCG/ML 2 ML AMP ONE (18:28)
[2022-04-22] MEDS ORDERED: LACTATED RINGERS 1,000 ML IV ONE ×2 (19:00)
--- NOTE | 2022-04-22 19:31 | P.OP ---
Date of Procedure: 04/22/22 Preoperative Diagnosis: Symptomatic hardware left ankle status post open reduction and internal fixation distal fibula fracture Postoperative Diagnosis: Same Procedure(s) Performed: Hardware removal deep, left ankle Anesthesia: RAMYA Surgeon: Sarath Rodriguez Telephonic Case Manager #1: Hyacinth Palm Estimated Blood Loss (ml): 10 IV fluids (ml): 500 Pathology: none sent Condition: stable Disposition: PACU Indications for Procedure: The patient is a very pleasant previously healthy 56-year-old female who previously underwent open reduction and internal fixation of the left ankle fracture. She went on to heal her fracture but developed pain and prominence from the hardware over her distal fibula. She came to see me in the office and requested hardware removal. I think that since the majority of her pain is from the symptomatic hardware she would likely get improvement with hardware removal. We discussed the potential risks and complications of surgery certain he not limited to risks from anesthesia, superficial infection, deep infection, delayed wound healing, superficial wound necrosis, damage to local blood vessels or nerves, refracture, instability of the ankle mortise, need for further surgery including revision open reduction internal fixation, posterior medical arthritis, continued or worsened pain, DVT, PE, other medical complications, and possibly loss of life or limb. The patient voiced her understanding of these potential complications and also acknowledges that other, less common complications are possible. She provided both her verbal and written consent to go forward with surgery. Description of Procedure: He was identified in preoperative holding and the correct left ankle was marked my initials. I reviewed the consent form with the patient and her family. All their questions were answered. The patient was then brought back to the operating room by anesthesia. She was given a general anesthetic and preoperative antibiotics. She was positioned on the OR table. A bump was placed under the left side of her body internally rotating the left leg. A ramp was placed to facilitate imaging. The right leg was secured to the OR table with foam and tape. The tourniquet was applied proximal aspect of the left leg. The left leg was then prepped and draped in the standard sterile fashion. Prior to starting surgery timeout was performed identifying the correct patient, operative extremity, and procedure. The patient's leg was then elevated, exsanguinated with an Esmarch bandage, and the tourniquet was inflated to 250 mmHg. I began by outlining the lateral incision over the distal fibula. Skin incision was made with a 15 blade scalpel. Dissection was carried down carefully through subcutaneous tissue with tenotomy scissors. The periosteum was elevated off the plate. The screws were then sequentially removed. I carefully nature all adhesions and bony overgrowth was removed from the plate and the plate was easily removed. A Toribio was used to contour the screw holes. The lag screw anteriorly was then identified and removed. Fluoroscopy was brought in to verify that all the hardware had been removed. The ankle mortise appeared anatomic. A gentle manual external rotation stress test was performed and there was no widening of the medial clear space or incisura. I interpreted this as a stable ankle mortise. The wound was then thoroughly irrigated and closed in layers. A soft dressing was applied. The patient was then awoken from her anesthetic transferred [facility] and brought to recovery having tolerated the procedure well. X Hyacinth Palm PA-C was required for skilled family services assistant due to the complexity of the surgery. X Plan: The patient is going to discharged home as an outpatient. She can weight-bear as tolerated on her left leg in a boot. She will leave her dressing on for 2 days. After days she can remove her dressing and shower. She'll take aspirin 81 mg twice a day for 2 weeks for DVT prophylaxis. We'll give her pain medication. She'll follow-up in the office in 2 weeks for wound check and nonweightbearing x-rays of the left ankle.
[2022-04-22] MEDS ORDERED: HYDROmorphone 1 MG/ML 1 ML SYRINGE IVP PRN (19:33)
[2022-04-22] MEDS ORDERED: Acetaminophen-Codeine 300-30mg TAB PO PRN (19:33)
[2022-04-22] MEDS ORDERED: ONDANSETRON 4 MG/2 ML VIAL IVP PRN (19:33)
--- NOTE | 2022-04-22 19:44 | XR ---
EXAMINATION TYPE: XR ankle limited LT DATE OF EXAM: 04/22/2022 COMPARISON: NONE HISTORY: Surgery TECHNIQUE: FINDINGS: 2 fluoroscopic images were obtained that show apparent removal of the transverse screws in the distal tibia and fibula. Ankle mortise is anatomic. 9.9 seconds of fluoroscopy time was recorded. IMPRESSION: Uncomplicated process seen.
[2022-04-22] MEDS ORDERED: KETOROLAC 15 MG/ML 1 ML VIAL IVP ONE (19:49)
[2022-04-22] MEDS ORDERED: HYDROmorphone 0.5 MG/0.5 ML SYRINGE IVP ONE ×3 (19:49→20:04)
[2022-04-22 20:18] LABS: Glucose,Whole Blood 114 mg/dL (75-99)
[2022-04-22] MEDS: LACTATED RINGERS 1,000 ML IV SCH (20:45)
[2022-04-22 21:04] LABS: Glucose,Whole Blood 117 mg/dL (75-99)
[2022-04-23] MEDS: Acetaminophen-Codeine 300-30mg TAB PO PRN ×2 (01:45→05:39)
[2022-04-23 05:36] VITALS: BP 150/72; PULSE 68; RESP 18; TEMP 98.9
[2022-04-23] MEDS: LACTATED RINGERS 1,000 ML IV SCH (05:39)
--- NOTE | 2022-04-23 08:20 | FL ---
Fluoroscopy INDICATION: Pain FINDINGS: Fluoroscopy time: 9.9 seconds. Images obtained: 2. IMPRESSIONS: 1. Documentation of fluoroscopy.
== END 2022-04-23 07:55 | disposition home or self-care (01) ==
LOC: OR 14:37 → 4SSUR 20:20 → OR 04-23 07:55
PROVIDERS: ATTEND Orthopaedic Surgery
DX: T84.84XA Pain due to internal orthopedic prosthetic devices, implants and grafts, initial encounter (principal); Z98.890 Other specified postprocedural states; Z87.81 Personal history of (healed) traumatic fracture; I10 Essential (primary) hypertension; E78.5 Hyperlipidemia, unspecified; E11.9 Type 2 diabetes mellitus without complications; J45.909 Unspecified asthma, uncomplicated; Z87.891 Personal history of nicotine dependence; Z97.3 Presence of spectacles and contact lenses; Z90.49 Acquired absence of other specified parts of digestive tract; Z82.49 Family history of ischemic heart disease and other diseases of the circulatory system; Z83.3 Family history of diabetes mellitus; Z79.84 Long term (current) use of oral hypoglycemic drugs; Z79.1 Long term (current) use of non-steroidal anti-inflammatories (NSAID); Z79.899 Other long term (current) drug therapy; Z91.09 Other allergy status, other than to drugs and biological substances; Z79.51 Long term (current) use of inhaled steroids; Z88.5 Allergy status to narcotic agent; Z91.040 Latex allergy status; Z88.8 Allergy status to other drugs, medicaments and biological substances; Z91.030 Bee allergy status
CPT/HCPCS: 73600; 20680; J2250; J0690 ×2; J2405; J3010; J1885; J2704; J1170; J1790; J2001

== ENCOUNTER → 2022-06-21 | Outpatient (CLI) | payer OTHER ==
[2022-06-22 12:10] LABS: HLA B27 NEGATIVE
== END | disposition home or self-care (01) ==
LOC: LABWHC1 15:14
PROVIDERS: ATTEND Optometrist
DX: H15.122 Nodular episcleritis, left eye (principal)
CPT/HCPCS: 36415; 86812

== ENCOUNTER → 2023-07-20 | Outpatient (CLI) | payer OTHER ==
--- NOTE | 2023-07-20 10:56 | XR ---
EXAMINATION TYPE: XR ankle complete LT DATE OF EXAM: 07/20/2023 COMPARISON: Left ankle radiograph 04/22/2022, 11/26/2018, CT left ankle 11/19/2018 HISTORY: Left ankle contusion TECHNIQUE: 3 views of the left ankle are submitted for evaluation. FINDINGS: There is no evidence for acute fracture or dislocation. Remote distal fibular and tibia fra ctures. Ankle mortise is intact. Mild soft tissue swelling the ankle. Most pronounced over the latera l malleolus. Moderate size plantar calcaneal enthesophyte. IMPRESSION: 1. No evidence for acute fracture. 2. Remote distal tibia and and fibular fractures. 3. Mild soft tissue swelling of the ankle. Most pronounced over the lateral malleolus.
== END | disposition home or self-care (01) ==
LOC: RADXRMAIN 10:27
PROVIDERS: ATTEND Emergency Medicine
DX: S90.02XA Contusion of left ankle, initial encounter (principal); M79.89 Other specified soft tissue disorders; X58.XXXA Exposure to other specified factors, initial encounter

== ENCOUNTER → 2023-07-28 | Outpatient (CLI) | payer OTHER ==
--- NOTE | 2023-07-28 11:56 | XR ---
EXAMINATION TYPE: XR ankle complete LT DATE OF EXAM: 07/28/2023 COMPARISON: Left ankle radiograph 07/20/2023 HISTORY: Ankle contusion TECHNIQUE: 3 views of the left ankle are submitted for evaluation. FINDINGS: There is no evidence for acute fracture or dislocation. Remote distal fibular and tibia fra ctures. Ankle mortise is intact. Similar mild soft tissue swelling ankle. IMPRESSION: 1. No evidence for acute fracture. 2. Remote distal tibia and and fibular fractures. 3. Similar mild soft tissue swelling of the ankle.
== END | disposition home or self-care (01) ==
LOC: RADXRMAIN 11:39
PROVIDERS: ATTEND Emergency Medicine
DX: S90.02XA Contusion of left ankle, initial encounter (principal)

== ENCOUNTER → 2023-09-15 | Outpatient (CLI) | payer OTHER ==
--- NOTE | 2023-09-18 09:47 | MM ---
Reason for Exam: Screening (asymptomatic). Last mammogram was performed 2 year(s) and 4 month(s) ago. Patient History: Menarche at age 13. Patient has no children. Hysterectomy at age 38. Postmenopausal. 04/12/2007, Excisional Biopsy on the Left side. 2003, High risk Excisional Biopsy on the left side. 10/19/2010, Cyst Aspiration on the Left side. 10/19/2010, Cyst Aspiration on the Left side. Risk Values: Barb 5 year model risk: 1.7%. NCI Lifetime model risk: 10.2%. Prior Study Comparison: 10/26/2018 Bilateral Screening Mammogram, [facility]. 11/15/2018 Left Diagnostic Mammogram, [facility]. 04/30/2021 Bilateral Diagnostic Mammogram, [facility]. Tissue Density: The breast tissue is heterogeneously dense. This may lower the sensitivity of mammography. Findings: Analyzed By CAD. There is no suspicious group of microcalcifications or new suspicious mass. Overall Assessment: Negative, BI-RAD 1 Management: Screening Mammogram of both breasts in [address] [facility] will attempt to contact patient to return for supplemental views and ultrasound if indicated. Patient should continue monthly self-breast exams. A clinical breast exam by your physician is recommended on an annual basis. This exam should not preclude additional follow-up of suspicious palpable abnormalities. Note on Barb scores and lifetime risk: 1. A Barb score greater than 3% is considered moderate risk. If this is the case, consider specialist referral to assess eligibility for a risk reducing agent. 2. If overall lifetime risk for the development of breast cancer is 20% or higher, the patient may qualify for future screening with alternating mammogram and breast MRI. Electronically signed and approved by: Eric Man DO
== END | disposition home or self-care (01) ==
LOC: RADMAMWWP 15:58
PROVIDERS: ATTEND Family Medicine
DX: Z12.31 Encounter for screening mammogram for malignant neoplasm of breast (principal); Z78.0 Asymptomatic menopausal state
CPT/HCPCS: 77067

== ENCOUNTER → 2024-05-24 | Outpatient (CLI) | payer OTHER ==
--- NOTE | 2024-05-24 22:28 | US ---
EXAMINATION TYPE: US thyroid st tissue head/neck DATE OF EXAM: 05/24/2024 COMPARISON: NONE CLINICAL INDICATION: Female, 59 years old with history of R22.1 LOCALIZED SWELLING, MASS AND LUMP, NE CK; Left lateral neck pain from parotid to inferior neck x few days. On day 3 of antibiotics. No re dness. TECHNIQUE: Multiple grayscale and color Doppler ultrasound images of the left lateral neck at site o f palpable abnormality were obtained. FINDINGS/IMPRESSION: Patients area of concern scanned. Mildly prominent lymph nodes identified with largest measuring 0.6 mL short axis with a cortical thickness of 3.2 mm. These demonstrate performed shape with normal central fatty hilum. Probable reactive lymph nodes. No organized fluid collection i dentified.
== END | disposition home or self-care (01) ==
LOC: RADUSWWP 09:57
PROVIDERS: ATTEND Family Medicine
DX: R22.1 Localized swelling, mass and lump, neck (principal)
CPT/HCPCS: 76536

== ENCOUNTER 2025-03-21 12:51 | Inpatient (IN) | payer OTHER ==
--- NOTE | 2025-03-21 13:41 | ED ---
Chest Pain HPI - General Chief Complaint: Chest Pain Stated Complaint: Chest pain Time Seen by Provider: 03/21/25 13:18 Source: patient Mode of arrival: wheelchair Limitations: no limitations - History of Present Illness Initial Comments: This is a 59-year-old female with a history of hypertension, diabetes, CAD with stent placement presenting to the emergency department for complaints of intermittent chest pain over the past week that is intensified today to a constant pressure. Patient states the pain is located to the left side of her chest and will mildly radiate into her neck. Additionally, she complains of left-sided arm intermittent paresthesias. Patient had episode of emesis on the way to the emergency department. States that she has been experiencing intermittent shortness of breath along with the chest pain. Denies history of DVT, PE, recent travel, surgeries. Denies blood thinner use. Patient follows with Dr. Miller - Related Data Home Medications Medication Instructions Recorded Confirmed Omeprazole [PriLOSEC] 40 mg PO DAILY 10/14/14 03/21/25 Pioglitazone [Actos] 30 mg PO DAILY 11/05/18 03/21/25 Albuterol Inhaler [Ventolin Hfa 2 puff INHALATION RT-QID PRN 09/13/21 03/21/25 Inhaler] Atorvastatin Calcium [Lipitor] 40 mg PO DAILY 09/13/21 03/21/25 Montelukast Sodium [Singulair] 10 mg PO DAILY 04/21/22 03/21/25 Budesonide/Formoterol Fumarate 2 puff INHALATION RT-BID 03/21/25 03/21/25 [Symbicort 160-4.5 Mcg Inhaler] Escitalopram [Lexapro] 20 mg PO DAILY 03/21/25 03/21/25 Losartan [Cozaar] 25 mg PO BID 03/21/25 03/21/25 Allergies Allergy/AdvReac Type Severity Reaction Status Date / Time cephalexin [From Keflex] Allergy Unknown Verified 03/21/25 15:09 hydrocodone bitartrate Allergy flushed Verified 03/21/25 15:09 [From Vicodin] skin/gets hot latex Allergy Rash/Hives/red Verified 03/21/25 15:09 skin Penicillins Allergy Unknown Verified 03/21/25 15:09 Childhood adhesive AdvReac blisters Verified 03/21/25 15:09 dapagliflozin [From Farxiga] AdvReac decreased Verified 03/21/25 15:09 BP steri strips AdvReac blisters Uncoded 03/21/25 15:09 Review of Systems ROS Statement: Those systems with pertinent positive or pertinent negative responses have been documented in the HPI. ROS Other: All systems not noted in ROS Statement are negative. Past Medical History Past Medical History: Asthma, Diabetes Mellitus, GERD/Reflux, Hyperlipidemia, Hypertension Additional Past Medical History / Comment(s): hx heart murmur, hiatal hernia, History of Any Multi-Drug Resistant Organisms: None Reported Past Surgical History: Breast Surgery, Cholecystectomy, Hernia Repair, Hysterectomy, Orthopedic Surgery Additional Past Surgical History / Comment(s): rt knee arthroscopy, left breast biopsy.. left ankle ORIF/ plate and screws Past Anesthesia/Blood Transfusion Reactions: Postoperative Nausea & Vomiting (PONV) Additional Past Anesthesia/Blood Transfusion Reaction / Comment(s): Slow to wake up @times. Past Psychological History: Anxiety Smoking Status: Former smoker Past Alcohol Use History: Rare Past Drug Use History: None Reported - Past Family History Sister(s) Family Medical History: Cancer General Exam Limitations: no limitations General appearance: alert, in no apparent distress Neck exam: Present: normal inspection. Absent: tenderness, meningismus, lym phadenopathy Respiratory exam: Present: normal lung sounds bilaterally. Absent: respiratory distress, wheezes, rales, rhonchi, stridor Cardiovascular Exam: Present: regular rate, normal rhythm, normal heart sounds. Absent: systolic murmur, diastolic murmur, rubs, gallop, clicks GI/Abdominal exam: Present: soft, normal bowel sounds. Absent: distended, tenderness, guarding, rebound, rigid Extremities exam: Present: normal inspection, full ROM, normal capillary refill. Absent: tenderness, pedal edema, joint swelling, calf tenderness Back exam: Present: normal inspection Neurological exam: Present: alert, oriented X3, CN II-XII intact Course Vital Signs 03/21/25 03/21/25 13:00 15:34 Temperature 97.9 F Pulse Rate 82 84 Respiratory 18 18 Rate Blood Pressure 124/78 127/57 O2 Sat by Pulse 98 99 Oximetry Chest Pain MDM - MDM Was pt. sent in by a medical professional or institution (, PA, RELIEF MAP MODELER, urgent care, hospital, or fpc...) When possible be specific @ -No Did you speak to anyone other than the patient for history (EMS, parent, family, police, friend...)? What history was obtained from this source @ -No Did you review nursing and triage notes (agree or disagree)? Why? @ -I reviewed and agree with nursing and triage notes Were old charts reviewed (outside hosp., previous admission, EMS record, old E KG, old radiological studies, urgent care reports/EKG's, fpc records)? Report findings @ -No old charts were reviewed Differential Diagnosis (chest pain, altered mental status, abdominal pain women, abdominal pain men, vaginal bleeding, weakness, fever, dyspnea, syncope, headache, dizziness, GI bleed, back pain, seizure, CVA, palpatations, mental health, musculoskeletal)? @ -Differential Chest Pain: Stable Angina, Unstable Angina, STEMI, NSTEMI Aortic Dissection, Pneumothorax, Musculoskeletal, Esophageal Spasm GERD, Cholecystitis, Pancreatitis, Zoster, this is not meant to be an all-inclusive list. EKG interpreted by me (3pts min.). @ -Completed at 1312 sinus rhythm with a ventricular of 69, DE interval 148, QRS 100, QTc 417, QT 383. Reviewed patient's EKG completed in October 2018 which reveals similar T wave inversions in lead III X-rays interpreted by me (1pt min.). @ -None done CT interpreted by me (1pt min.). @ -None done U/S interpreted by me (1pt. min.). @ -None done What testing was considered but not performed or refused? (CT, X-rays, U/S, labs)? Why? @ -None What meds were considered but not given or refused? Why? @ -None Did you discuss the management of the patient with other professionals (professionals i.e. , PA, RELIEF MAP MODELER, lab, RT, psych nurse, oncology social work, edging machine operator, teacher, hospital security officer, window caser)? Give summary @ -Spoke with sound physician who was agreed to admit the patient with cardiology on consult. Was smoking cessation discussed for >3mins.? @ -No Was critical care preformed (if so, how long)? @ -No Were there social determinants of health that impacted care today? How? (Homelessness, low income, unemployed, alcoholism, drug addiction, transportation, low edu. Level, literacy, decrease access to med. care, fdc, rehab)? @ -No Was there de-escalation of care discussed even if they declined (Discuss DNR or withdrawal of care, Hospice)? DNR status @ -No What co-morbidities impacted this encounter? (DM, HTN, Smoking, COPD, CAD, Cancer, CVA, ARF, Chemo, Hep., AIDS, mental health diagnosis, sleep apnea, morbid obesity)? @ -Hypertension, hyperlipidemia, coronary artery disease, diabetes Was patient admitted / discharged? Hospital course, mention meds given and route, prescriptions, significant lab abnormalities, going to OR and other pertinent info. @ -Admitted. 51-year-old female presents emergency department with complaints of chest pain. Initial vitals are stable. EKG reveals a sinus rhythm with no acute ST segment changes. Patient provided with dose of Zofran for nausea and Nitropaste. On reevaluation patient states that Nitropaste has alleviated her chest pain. Initial workup has been negative, troponin nonelevated. Patient admitted to internal medicine with cardiology on consult for cardiac observation. Case discussed with Dr. Waterman Undiagnosed new problem with uncertain prognosis? @ -No Drug Therapy requiring intensive monitoring for toxicity (Heparin, Nitro, Insulin, Cardizem)? @ -No Were any procedures done? @ -No Diagnosis/symptom? @ -Chest pain Acute, or Chronic, or Acute on Chronic? @ -Acute Uncomplicated (without systemic symptoms) or Complicated (systemic symptoms)? @ -Complicated Side effects of treatment? @ -No Exacerbation, Progression, or Severe Exacerbation? @ -No Poses a threat to life or bodily function? How? (Chest pain, [place], [place], pneumonia, PE, COPD, DKA, ARF, appy, cholecystitis, CVA, Diverticulitis, Homicidal, Suicidal, threat to staff... and all critical care pts) @ -No Disposition Clinical Impression: Chest pain Disposition: ADMITTED IP TO THIS [facility] Condition: Stable Referrals: Rick Ward MD [Primary Care Provider] - 1-2 days Decision to Admit Reason: Admit from EC Decision Date: 03/21/25
[2025-03-21] MEDS: ONDANSETRON 4 MG/2 ML VIAL IVP STA (14:00)
[2025-03-21] MEDS: ASPIRIN 81 MG PO STA (14:00)
[2025-03-21] MEDS: NITROGLYCERIN OINT 1 INCH/GM PACKET TOPICAL STA (14:00)
[2025-03-21 14:04] LABS: Basophils # (A) 0.03 10*3/uL (0.00-0.10); Basophils % (A) 0.4 %; Eosinophils # (A) 0.04 10*3/uL (0.04-0.35); Eosinophils % (A) 0.6 %; HCT 41.5 % (37.2-46.3); HGB 14.6 g/dL (12.0-15.0); Lymphocytes # (A) 2.07 10*3/uL (0.90-5.00); Lymphocytes % (A) 29.5 %; MCH 30.3 pg (27.0-32.0); MCHC 35.2 g/dL (32.0-37.0); MCV 86.1 fL (80.0-97.0); Mean Platelet Volume 10.3 fL (9.5-12.2); Monocytes # (A) 0.43 10*3/uL (0.20-1.00); Monocytes % (A) 6.1 %; Neutrophils # (A) 4.42 10*3/uL (1.80-7.70); Neutrophils % (A) 63.1 %; Platelet Count 267 10*3/uL (140-440); RBC 4.82 10*6/uL (4.10-5.20); RDW 12.3 % (11.5-14.5); WBC 7.01 10*3/uL (4.50-10.00)
[2025-03-21 14:19] LABS: ALT 36 U/L (4-34); AST 39 U/L (14-36); African American GFR (CKD) >90 (>60 ml/min/1.73 sqM); Albumin 4.7 g/dL (3.5-5.0); Alkaline Phosphatase 173 U/L (38-126); Anion Gap 12 mmol/L; Blood Urea Nitrogen 21 mg/dL (7-17); Calcium 9.6 mg/dL (8.4-10.2); Carbon Dioxide 22 mmol/L (22-30); Chloride 102 mmol/L (98-107); Glucose 202 mg/dL (74-99); Lipase 101 U/L (23-300); Magnesium 1.7 mg/dL (1.6-2.3); Non-African American GFR(CKD) >90 (>60 ml/min/1.73 sqM); Sodium 136 mmol/L (137-145); Total Protein 7.6 g/dL (6.3-8.2)
[2025-03-21 14:30] LABS: INR 0.9 (<1.2); Partial Thromboplastin Time 23.4 sec (22.0-30.0); Prothrombin Time 10.2 sec (10.0-12.5)
--- NOTE | 2025-03-21 14:46 | XR ---
EXAMINATION TYPE: XR chest 2V DATE OF EXAM: 03/21/2025 2:37 PM COMPARISON: Chest radiographs from 12/22/2021, 09/13/2021 TECHNIQUE: XR chest 2V Frontal and lateral views of the chest. CLINICAL INDICATION:Female, 59 years old with history of Chest Pain; FINDINGS: Lungs/Pleura: There is no evidence of pleural effusion, focal consolidation, or pneumothorax. Pulmonary vascularity: Unremarkable. Heart/mediastinum: Cardiomediastinal silhouette is unremarkable. Musculoskeletal: Multiple level degenerative disc disease changes seen throughout the spine. Other findings: Surgical clips in the upper abdomen. IMPRESSION: No acute cardiopulmonary disease/process. [facility], , 03/21/2025 2:44 PM
[2025-03-21] MEDS ORDERED: NALOXONE 0.4 MG/ML 1 ML VIAL IV PRN (15:22)
[2025-03-21] MEDS ORDERED: KETOROLAC 15 MG/ML 1 ML VIAL IVP PRN (15:22)
[2025-03-21] MEDS ORDERED: ALBUTEROL NEBULIZED 2.5 MG/3 ML INHALATION PRN (15:30)
[2025-03-21] MEDS: MORPHINE SULFATE 4 MG/ML SYRINGE IV PRN (15:40)
[2025-03-21] MEDS: ONDANSETRON 4 MG/2 ML VIAL IVP PRN (16:17)
--- NOTE | 2025-03-21 16:40 | P.HPIM ---
History of Present Illness H&P Date: 03/21/25 History of Presenting Illness: Patient is a very pleasant 59-year-old female with a past medical history of hypertension and heart murmur follows with Dr. Izaguirre, hyperlipidemia, type II [id number] diabetes mellitus, asthma/COPD not home oxygen dependent, GERD, and anxiety. She presented to the emergency department with a chief complaint of chest pain. Patient reports experiencing intermittent chest pain/pressure beginning in epigastric region radiating to left anterior chest associated by pain/tingling down left arm beginning approximately 1 week ago and progressively worsening. Patient reports today pain was persistent and unrelent ing accompanied by nausea and vomiting so she came to the emergency department for evaluation. Patient denies having any headache, lightheadedness, dizziness, palpitations, shortness of breath, cough or congestion, or experiencing any numbness/weakness/swelling in her extremities. Patient reports she last seen Dr. Izaguirre in office about 5 months ago and had echocardiogram completed at that time and she is scheduled to see him again next month for follow-up.. Upon arrival to our facility, patient underwent evaluation in the emergency department. Vital signs upon arrival show blood pressure 82, respiratory rate 18, temp 97.9 F, and SpO2 of 98% on room air. EKG completed showing normal s inus rhythm at 79 bpm with no significant T wave or ST abnormality showing no signs of acute ischemia upon personal review and interpretation. Chest x-ray negative for acute cardiopulmonary process. Labs completed and reviewed. CBC unremarkable. Coagulation profile normal findings. BMP showing mild prerenal azotemia with BUN of 21 otherwise normal findings. Blood glucose was elevated at 202. Magnesium was slightly low at 1.7. Liver profile showing transaminitis with AST of 39, AST of 36, and alkaline phosphatase of 173. Troponin was negative at less than 0.012. Lipase was normal at 101. Patient was admitted under our services with consultation to cardiology. She received aspirin, nitroglycerin, and Zofran x 2 doses in the emergency department. At time of physical exam patient reporting intractable epigastric pain and actively vomiting/dry heaving despite 2 doses of IV antiemetics with Zofran Review of systems: Pertinent positives and negatives as discussed in HPI, a complete review of systems was performed and all other systems are negative. Physical exam: Vital signs reviewed and stable. General: Nontoxicand appears stated age. Patient in mild distress on initial exam as she was wincing in pain and actively vomiting/dry heaving Derm: Skin warm and dry, normal coloration for ethnicity. Head: Atraumatic, normocephalic and symmetric. Eyes: EOM's intact, no lid lag, and anicteric sclera Mouth: no lip lesions, mucus membranes moist Cardiovascular: regular rate and rhythm with normal S1S2, soft systolic murmur, positive posterior tibial pulses bilaterally, and cap refill < 2 seconds. Lungs: Respirations even, regular, and unlabored on room air. Lungs CTA bilaterally, no rhonchi, no rales, no wheezing, and no accessory muscle usage. Abdominal: soft distended, tenderness to epigastric region Ext: ROM intact. No gross muscle atrophy, no edema, no contractures Neuro: Speech clear, face symmetrical and CN II-XII grossly intact with no noted focal neuro deficits Psych: Alert and oriented to person, place, time, and situation. Appropriate and pleasant affect. Assessment and Plan of Care: Chest/Epigastric pain Transaminitis Intractable nausea and vomiting -Order placed for CT abdomen and pelvis with IV contrast. -Intractable nausea and vomiting despite administration of Zofran x 2 doses, Zofran discontinued and patient started on Compazine 10 mg IVP as needed for nausea or vomiting. -Symptomatic care and pain management. -Cardiology consulted, appreciate recommendations -Telemetry monitoring -Trend troponins and repeat CMP with morning labs to monitor liver function for improvement/resolution of transaminitis. -Aspirin 81 mg daily, atorvastatin 40 mg daily, losartan 25 mg twice daily. -Patient reports recent echocardiogram at [facility] office 5 months ago, will defer to rn triage if need to repeat after record is obtained. Diabetes mellitus with hyperglycemia - Blood glucose 202. Hold Actos and place patient on glycemic protocol with NovoLog sliding scale. Hemoglobin A1c with a.m. labs. Hypertension -Monitor vital signs and continue daily medication regimen with losartan 25 mg twice daily. Hyperlipidemia -Continue daily medication regimen with atorvastatin 40 mg daily. Asthma/COPD, not in acute exacerbation - Ventolin inhaler 2 puffs 4 times daily as needed for wheezing/shortness of breath, Symbicort 160-4.5 mcg inhaler 2 puffs twice daily, and Singulair 10 mg nightly. Anxiety -Continue daily medication regimen with Lexapro 20 mg daily. Data and imaging reviewed: As stated above in HPI The patient is admitted with an anticipated less than 2 midnight stay for arlen luation of chest/epigastric pain with intractable nausea and vomiting CODE STATUS: Full code DVT prophylaxis: Lovenox Discussed with: Patient, patient's family at bedside, RN, and ED physician Anticipated discharge date: Pending clinical course Anticipated discharge place: Home Patient was seen independently by Nurse Practitioner. This document was prepared using [employer] dictation software. Please allow for errors in coating mixer while rare they do occur. Keith Tripp NP rendered care for this patient independently, reviewed the findings and plan as documented in the note above and agree with plan. I did not physically speak with or examine the patient on this date. Past Medical History Past Medical History: Asthma, Diabetes Mellitus, GERD/Reflux, Hyperlipidemia, Hypertension Additional Past Medical History / Comment(s): hx heart murmur, hiatal hernia, History of Any Multi-Drug Resistant Organisms: None Reported Past Surgical History: Breast Surgery, Cholecystectomy, Hernia Repair, Hysterectomy, Orthopedic Surgery Additional Past Surgical History / Comment(s): rt knee arthroscopy, left breast biopsy.. left ankle ORIF/ plate and screws Past Anesthesia/Blood Transfusion Reactions: Postoperative Nausea & Vomiting (PONV) Additional Past Anesthesia/Blood Transfusion Reaction / Comment(s): Slow to wake up @times. Past Psychological History: Anxiety Smoking Status: Former smoker Past Alcohol Use History: Rare Past Drug Use History: None Reported - Past Family History Sister(s) Family Medical History: Cancer Medications and Allergies Home Medications Medication Instructions Recorded Confirmed Type Omeprazole [PriLOSEC] 40 mg PO DAILY 10/14/14 03/21/25 History Pioglitazone [Actos] 30 mg PO DAILY 11/05/18 03/21/25 History Albuterol Inhaler [Ventolin Hfa 2 puff INHALATION RT-QID PRN 09/13/21 03/21/25 History Inhaler] Atorvastatin Calcium [Lipitor] 40 mg PO DAILY 09/13/21 03/21/25 History Montelukast Sodium [Singulair] 10 mg PO DAILY 04/21/22 03/21/25 History Budesonide/Formoterol Fumarate 2 puff INHALATION RT-BID 03/21/25 03/21/25 History [Symbicort 160-4.5 Mcg Inhaler] Escitalopram [Lexapro] 20 mg PO DAILY 03/21/25 03/21/25 History Losartan [Cozaar] 25 mg PO BID 03/21/25 03/21/25 History Allergies Allergy/AdvReac Type Severity Reaction Status Date / Time cephalexin [From Keflex] Allergy Unknown Verified 03/21/25 15:09 hydrocodone bitartrate Allergy flushed Verified 03/21/25 15:09 [From Vicodin] skin/gets hot latex Allergy Rash/Hives/red Verified 03/21/25 15:09 skin Penicillins Allergy Unknown Verified 03/21/25 15:09 Childhood adhesive AdvReac blisters Verified 03/21/25 15:09 dapagliflozin [From Farxiga] AdvReac decreased Verified 03/21/25 15:09 BP steri strips AdvReac blisters Uncoded 03/21/25 15:09 Physical Exam Vitals: Vital Signs Temp Pulse Resp BP Pulse Ox 03/21/25 15:34 84 18 127/57 99 03/21/25 13:00 97.9 F 82 18 124/78 98 Intake and Output 03/21/25 03/21/25 03/21/25 06:59 14:59 22:59 Other: Weight 90.718 kg Results CBC & Chem 7: 03/21/25 13:44 03/21/25 13:44 Labs: Abnormal Lab Results - Last 24 Hours (Table) 03/21/25 Range/Units 13:44 Sodium 136 L (137-145) mmol/L BUN 21 H (7-17) mg/dL Glucose 202 H (74-99) mg/dL AST 39 H (14-36) U/L ALT 36 H (4-34) U/L Alkaline Phosphatase 173 H (38-126) U/L
[2025-03-21] MEDS: PROCHLORPERAZINE INJ 10 MG/2 ML VIAL IVP STA (16:42)
[2025-03-21] MEDS ORDERED: DEXTROSE 50% SYRINGE 50 ML IVP PRN ×2 (17:13)
[2025-03-21] MEDS ORDERED: PROCHLORPERAZINE INJ 10 MG/2 ML VIAL IVP PRN (17:14)
--- NOTE | 2025-03-21 17:27 | CT ---
EXAMINATION TYPE: CT abdomen pelvis w con DATE OF EXAM: 03/21/2025 5:17 PM COMPARISON: None. CLINICAL INDICATION: Female, 59 years old with history of epigastric pain, nausea, vomiting, transami nitis, Eval liver and bile duct, hx cholecystectomy. Epigastric pain, N/V. TECHNIQUE:CT scan of the abdomen and pelvis is performed without Oral Contrast and with IV Contrast, patient injected with 100 ml mL of Isovue 300. CT DLP: 1132.4 mGycm, Automated exposure control for dose reduction was used. FINDINGS: LUNG BASES-: No visible nodule. No infiltrate. LIVER/GB: There is evidence of pneumobilia. The gallbladder is surgically absent. No space occupying hepatic lesion. Biliary tree is of normal caliber. PANCREAS: No inflammation. No distinct mass. SPLEEN: No splenic enlargement. No lesion seen. ADRENALS: No nodule. No thickening. KIDNEYS/BLADDER: No hydronephrosis. No nephrolithiasis. No distinct renal mass. Urinary bladder g rossly unremarkable. BOWEL: Normal appendix. Normal bowel caliber. No inflammation. GENITAL ORGANS: Hysterectomy changes noted. No evidence for adnexal mass. LYMPH NODES: No greater than 1cm abdominal or pelvic lymph nodes are appreciated. AORTA: No significant abnormality. OSSEOUS STRUCTURES: No significant abnormality is seen. OTHER: No significant additional abnormality is seen. IMPRESSION: 1. There is evidence of pneumobilia. The gallbladder is surgically absent. Examination is otherwise u nremarkable. [facility], , 03/21/2025 5:25 PM
[2025-03-21 17:46] LABS: Glucose,Whole Blood 143 mg/dL (70-110)
[2025-03-21] MEDS: INSULIN LISPRO (HumaLOG) 100 UNIT/ML 10 mL VL SQ SCH (17:46)
[2025-03-21] MEDS: MAGNESIUM SULFATE-D5W PMX 1 GM in DEXTROSE/WATER 1 100ML.BAG IVPB SCH (18:15)
[2025-03-21] MEDS: metroNIDAZOLE-NS PMX 500 MG in SALINE 1 100ML.BAG IVPB SCH (18:22)
[2025-03-21] MEDS: LEVOFLOXACIN 750MG-D5W PMX 750 MG in DEXTROSE/WATER 1 150ML.BAG IVPB SCH (18:23)
[2025-03-21] MEDS ORDERED: HEPARIN SODIUM 1,000 UN/ML (10ML VL) IV PRN (19:45)
[2025-03-21] MEDS: SYMBICORT 160-4.5 MCG INHALER INHALATION SCH (19:56)
[2025-03-21] MEDS: HEPARIN SODIUM 1,000 UN/ML (10ML VL) IV ONE (20:05)
[2025-03-21] MEDS: HEPARIN SOD,PORK IN 0.45% NACL 25,000 UNIT in 0.45% NACL 1 250ML.BAG IV SCH (20:06)
[2025-03-21] MEDS ORDERED: CIPROFLOXACIN PO SCH (21:00)
[2025-03-21 21:04] LABS: Glucose,Whole Blood 221 mg/dL (70-110)
[2025-03-21] MEDS: LOSARTAN 25 MG TAB PO SCH (21:25)
[2025-03-22 03:07] LABS: ALT 43 U/L (4-34); AST 47 U/L (14-36); African American GFR (CKD) >90 (>60 ml/min/1.73 sqM); Albumin/Globulin Ratio 1.6; Alkaline Phosphatase 146 U/L (38-126); Anion Gap 11 mmol/L; Blood Urea Nitrogen 19 mg/dL (7-17); Carbon Dioxide 23 mmol/L (22-30); Chloride 100 mmol/L (98-107); Globulin 2.5 g/dL; Glucose 151 mg/dL (74-99); Magnesium 2.2 mg/dL (1.6-2.3); Non-African American GFR(CKD) >90 (>60 ml/min/1.73 sqM); Potassium 4.4 mmol/L (3.5-5.1); Sodium 134 mmol/L (137-145); Total Bilirubin 0.7 mg/dL (0.2-1.3); Total Protein 6.5 g/dL (6.3-8.2)
[2025-03-22] MEDS: PANTOPRAZOLE 40 MG TABLET PO SCH ×2 (06:23→20:19)
[2025-03-22 06:26] LABS: Glucose,Whole Blood 170 mg/dL (70-110)
[2025-03-22] MEDS: ESCITALOPRAM 20 MG TAB PO SCH (08:52)
[2025-03-22] MEDS: MONTELUKAST 10 MG TAB PO SCH (08:52)
[2025-03-22] MEDS: ATORVASTATIN 40 MG TAB PO SCH (08:52)
[2025-03-22] MEDS: ASPIRIN 81 MG PO SCH (08:52)
[2025-03-22] MEDS ORDERED: ENOXAPARIN 40 MG/0.4 ML SYRINGE SQ SCH (09:00)
--- NOTE | 2025-03-22 09:37 | P.GSCN ---
History of Present Illness History of present illness: Patient is a very pleasant 59-year-old female with a past medical history of hypertension and heart murmur follows with Dr. Izaguirre, hyperlipidemia, type II hea-cvlurih-[id number] diabetes mellitus, asthma/COPD not home oxygen dependent, GERD, and anxiety. She presented to the emergency department with a chief complaint of chest pain. Patient reports experiencing intermittent chest inocencia n/pressure beginning in epigastric region radiating to left anterior chest associated by pain/tingling down left arm beginning approximately 1 week ago and progressively worsening. Patient reports today pain was persistent and unrelenting accompanied by nausea and vomiting so she came to the emergency department for evaluation. Patient denies having any headache, lightheadedness, dizziness, palpitations, shortness of breath, cough or congestion, or experiencing any numbness/weakness/swelling in her extremities. She received aspirin, nitroglycerin, and Zofran x 2 doses in the emergency department. At time of physical exam patient reporting intractable epigastric pain and actively vomiting/dry heaving despite 2 doses of IV antiemetics with Zofran. Patient recently denies abdominal pain. Review of Systems - Constitutional Reports as per HPI Past Medical History Past Medical History: Asthma, Diabetes Mellitus, GERD/Reflux, Hyperlipidemia, Hypertension Additional Past Medical History / Comment(s): hx heart murmur, hiatal hernia History of Any Multi-Drug Resistant Organisms: None Reported Past Surgical History: Breast Surgery, Cholecystectomy, Hysterectomy, Orthopedic Surgery Additional Past Surgical History / Comment(s): rt knee arthroscopy, left breast biopsy.. left ankle ORIF/ plate and screws Past Anesthesia/Blood Transfusion Reactions: Postoperative Nausea & Vomiting (PONV) Additional Past Anesthesia/Blood Transfusion Reaction / Comm: Slow to wake up @times. Past Psychological History: Anxiety Smoking Status: Former smoker Past Alcohol Use History: Rare Additional Past Alcohol Use History / Comment(s): Quit smoking in 1999, smoked on and off for 22 yrs, <1PPD. Past Drug Use History: None Reported - Past Family History Sister(s) Family Medical History: Cancer Medications and Allergies Home Medications Medication Instructions Recorded Confirmed Type Omeprazole [PriLOSEC] 40 mg PO DAILY 10/14/14 03/21/25 History Pioglitazone [Actos] 30 mg PO DAILY 11/05/18 03/21/25 History Albuterol Inhaler [Ventolin Hfa 2 puff INHALATION RT-QID PRN 10/18/21 04/25/25 History Inhaler] Atorvastatin Calcium [Lipitor] 40 mg PO DAILY 09/13/21 03/21/25 History Montelukast Sodium [Singulair] 10 mg PO DAILY 04/21/22 03/21/25 History Budesonide/Formoterol Fumarate 2 puff INHALATION RT-BID 03/21/25 03/21/25 History [Symbicort 160-4.5 Mcg Inhaler] Escitalopram [Lexapro] 20 mg PO DAILY 03/21/25 03/21/25 History Losartan [Cozaar] 25 mg PO BID 03/21/25 03/21/25 History Allergies Allergy/AdvReac Type Severity Reaction Status Date / Time cephalexin [From Keflex] Allergy Unknown Verified 03/21/25 15:09 hydrocodone bitartrate Allergy flushed Verified 03/21/25 15:09 [From Vicodin] skin/gets hot latex Allergy Rash/Hives/red Verified 03/21/25 15:09 skin Penicillins Allergy Unknown Verified 03/21/25 15:09 Childhood adhesive AdvReac blisters Verified 03/21/25 15:09 dapagliflozin [From Farxiga] AdvReac decreased Verified 03/21/25 15:09 BP steri strips AdvReac blisters Uncoded 03/21/25 15:09 Surgical - Exam Osteopathic Statement: *. No significant issues noted on an osteopathic structural exam other than those noted in the History and Physical/Consult. Vital Signs Temp Pulse Resp BP Pulse Ox 97.9 F 82 18 124/78 98 03/21/25 13:00 03/21/25 13:00 03/21/25 13:00 03/21/25 13:00 03/21/25 13:00 - General gen: nad cv: rrr pul: non labored breathing abd: soft, non distended, non tender to palpation, no guarding or rebound tenderness Results - Labs 03/21/25 13:44 03/22/25 01:57 Abnormal Lab Results - Last 24 Hours (Table) 03/21/25 03/21/25 03/21/25 Range/Units 13:44 17:45 19:01 APTT (22.0-30.0) sec Sodium 136 L (137-145) mmol/L BUN 21 H (7-17) mg/dL Glucose 202 H (74-99) mg/dL POC Glucose (mg/dL) 143 H (70-110) mg/dL AST 39 H (14-36) U/L ALT 36 H (4-34) U/L Alkaline Phosphatase 173 H (38-126) U/L Troponin I 0.069 H* (0.000-0.034) ng/mL 03/21/25 03/21/25 03/22/25 Range/Units 21:02 21:54 01:57 APTT (22.0-30.0) sec Sodium 134 L (137-145) mmol/L BUN 19 H (7-17) mg/dL Glucose 151 H (74-99) mg/dL POC Glucose (mg/dL) 221 H (70-110) mg/dL AST 47 H (14-36) U/L ALT 43 H (4-34) U/L Alkaline Phosphatase 146 H (38-126) U/L Troponin I 0.152 H* (0.000-0.034) ng/mL 03/22/25 03/22/25 Range/Units 01:57 06:25 APTT 49.7 H (22.0-30.0) sec Sodium (137-145) mmol/L BUN (7-17) mg/dL Glucose (74-99) mg/dL POC Glucose (mg/dL) 170 H (70-110) mg/dL AST (14-36) U/L ALT (4-34) U/L Alkaline Phosphatase (38-126) U/L Troponin I (0.000-0.034) ng/mL Diabetes panel 03/21/25 03/22/25 Range/Units 13:44 01:57 Sodium 136 L 134 L (137-145) mmol/L Potassium 4.0 4.4 (3.5-5.1) mmol/L Chloride 102 100 (98-107) mmol/L Carbon Dioxide 22 23 (22-30) mmol/L BUN 21 H 19 H (7-17) mg/dL Creatinine 0.70 0.65 (0.52-1.04) mg/dL Glucose 202 H 151 H (74-99) mg/dL Calcium 9.6 9.0 (8.4-10.2) mg/dL AST 39 H 47 H (14-36) U/L ALT 36 H 43 H (4-34) U/L Alkaline Phosphatase 173 H 146 H (38-126) U/L Total Protein 7.6 6.5 (6.3-8.2) g/dL Albumin 4.7 4.0 (3.5-5.0) g/dL Calcium panel 03/21/25 03/22/25 Range/Units 13:44 01:57 Calcium 9.6 9.0 (8.4-10.2) mg/dL Albumin 4.7 4.0 (3.5-5.0) g/dL Pituitary panel 03/21/25 03/22/25 Range/Units 13:44 01:57 Sodium 136 L 134 L (137-145) mmol/L Potassium 4.0 4.4 (3.5-5.1) mmol/L Chloride 102 100 (98-107) mmol/L Carbon Dioxide 22 23 (22-30) mmol/L BUN 21 H 19 H (7-17) mg/dL Creatinine 0.70 0.65 (0.52-1.04) mg/dL Glucose 202 H 151 H (74-99) mg/dL Calcium 9.6 9.0 (8.4-10.2) mg/dL Adrenal panel 03/21/25 03/22/25 Range/Units 13:44 01:57 Sodium 136 L 134 L (137-145) mmol/L Potassium 4.0 4.4 (3.5-5.1) mmol/L Chloride 102 100 (98-107) mmol/L Carbon Dioxide 22 23 (22-30) mmol/L BUN 21 H 19 H (7-17) mg/dL Creatinine 0.70 0.65 (0.52-1.04) mg/dL Glucose 202 H 151 H (74-99) mg/dL Calcium 9.6 9.0 (8.4-10.2) mg/dL Total Bilirubin 1.0 0.7 (0.2-1.3) mg/dL AST 39 H 47 H (14-36) U/L ALT 36 H 43 H (4-34) U/L Alkaline Phosphatase 173 H 146 H (38-126) U/L Total Protein 7.6 6.5 (6.3-8.2) g/dL Albumin 4.7 4.0 (3.5-5.0) g/dL Assessment and Plan Assessment: 59 yo female w/ resolved epigastric abdominal pain history of increased stress 2/2 sibling's x 3 months ago history of gerd -likely stress ulcer, increase PPI to 40mg bid -pneumobilia likely 2/2 to previous instrumentation (ERCP and cholecystectomy) ok for discharge any questions, please call [phone] Dr. Douglass General Surgery Time with Patient: Greater than 30
[2025-03-22 09:44] LABS: Basophils # (A) 0.03 X 10*3/uL (0.00-0.10); Basophils % (A) 0.5 %; Eosinophils # (A) 0.03 X 10*3/uL (0.04-0.35); Eosinophils % (A) 0.5 %; HCT 38.4 % (37.2-46.3); HGB 12.6 g/dL (12.0-15.0); Lymphocytes # (A) 1.38 X 10*3/uL (0.90-5.00); Lymphocytes % (A) 21.7 %; MCH 29.3 pg (27.0-32.0); MCHC 32.8 g/dL (32.0-37.0); MCV 89.3 FL (80.0-97.0); Mean Platelet Volume 10.7 FL (9.5-12.2); Monocytes # (A) 0.46 X 10*3/uL (0.20-1.00); Monocytes % (A) 7.2 %; NRBC Per 100 WBC 0 X 10*3/uL (0.00-0.01); Neutrophils # (A) 4.43 X 10*3/uL (1.80-7.70); Neutrophils % (A) 69.6 %; Platelet Count 252 X 10*3/uL (140-440); WBC 6.36 X 10*3/uL (4.50-10.00)
[2025-03-22] MEDS ORDERED: ALPRAZolam 0.25 MG TAB PO PRN (10:07)
[2025-03-22] MEDS ORDERED: NITROGLYCERIN SL TABS 0.4 MG TAB SUBLINGUAL PRN (10:07)
--- NOTE | 2025-03-22 10:07 | P.CRDCN ---
History of Present Illness Consult date: 03/22/25 History of present illness: HPI: The patient is a 59-year-old female with a history of hypertension, dyslipidemia, type 2 diabetes, COPD, GERD, and anxiety. She presented to the ER with substantial chest pain. The pain began in the epigastric region, radiating to the left anterior chest, and has been progressively worsening over the last week. Yesterday, the pain became more persistent and was accompanied by nausea and vomiting, prompting her ER visit. Additional symptoms include headache, lightheadedness, dizziness, palpitations, shortness of breath, cough, and congestion were not present. Patient is known to Dr. Izaguirre Pertinent Vitals: - Blood pressure: 124/78 mmHg - Heart rate: 88 beats per minute - Respiratory rate: 18 breaths per minute - Oxygen saturation: 96% on room air Pertinent cardiac Labs: - 02/2025: Hemoglobin 14.6, Platelet 267, Bicarbonate 21, Creatinine 0.7, Sodium 136, ALP 173, Initial Troponin negative, Repeat Troponin 0.06, 0.15 Cardiac home meds: - Losartan 25 mg, Lipitor 40 mg, Pioglitazone 30 mg Pertinent cardiac testing: - EK02/2025: Sinus rhythm, heart rate 110 bpm, non-specific minimal ST changes in lead 3 - Chest X-ray: 02/2025: No signs of significant cardiopulmonary congestion REVIEW OF SYSTEMS: 14 point review of systems is negative except what is mentioned above in HPI. PHYSICAL EXAMINATION: Neck: Brisk carotid upstroke, no jugular venous distention. Lungs: Clear to auscultation. Heart: Regular rate and rhythm, S1-S2, no murmur or rub. Abdomen: Soft nontender, positive bowel sounds. Extremities: No edema, intact distal pulses. Neuro: Alert, oriented, no focal deficits. Detailed neuro exam was not performed. ASSESSMENT: # NSTEMI, another differential of stress cardiomyopathy because of recent history of family member and stress and bereavement. # Substantial chest pressure # Essential hypertension # Type 2 diabetes (not on metformin) # Nausea and vomiting # Mild transaminitis, likely because of nonalcoholic fatty liver # History of laparoscopic cholecystectomy with prior reported need for dilatation of bile duct # Pneumobilia noted on CT abdomen PLAN: # Aspirin 81 mg, # Lipitor 40 mg # Continue IV heparin drip # Losartan 25 mg, # Add Metoprolol 25 mg BID # Obtain echocardiogram Plan for cardiac authorization on Monday with Dr. Izaguirre Obtain lipids, HbA1c, NT-proBNP, TSH Further GI workup for transaminitis and pneumobilia Recommend first-line medical management for diabetes with metformin and GLP analogs and SGLT2 inhibitors. Request PCP to help with this Past Medical History Past Medical History: Asthma, Diabetes Mellitus, GERD/Reflux, Hyperlipidemia, Hypertension Additional Past Medical History / Comment(s): hx heart murmur, hiatal hernia History of Any Multi-Drug Resistant Organisms: None Reported Past Surgical History: Breast Surgery, Cholecystectomy, Hysterectomy, Orthopedic Surgery Additional Past Surgical History / Comment(s): rt knee arthroscopy, left breast biopsy.. left ankle ORIF/ plate and screws Past Anesthesia/Blood Transfusion Reactions: Postoperative Nausea & Vomiting (PONV) Additional Past Anesthesia/Blood Transfusion Reaction / Comment(s): Slow to wake up @times. Past Psychological History: Anxiety Smoking Status: Former smoker Past Alcohol Use History: Rare Additional Past Alcohol Use History / Comment(s): Quit smoking in 1999, smoked on and off for 22 yrs, <1PPD. Past Drug Use History: None Reported - Past Family History Sister(s) Family Medical History: Cancer Medications and Allergies Home Medications Medication Instructions Recorded Confirmed Type Omeprazole [PriLOSEC] 40 mg PO DAILY 10/14/14 03/21/25 History Pioglitazone [Actos] 30 mg PO DAILY 11/05/18 03/21/25 History Albuterol Inhaler [Ventolin Hfa 2 puff INHALATION RT-QID PRN 09/13/21 03/21/25 History Inhaler] Atorvastatin Calcium [Lipitor] 40 mg PO DAILY 09/13/21 03/21/25 History Montelukast Sodium [Singulair] 10 mg PO DAILY 04/21/22 03/21/25 History Budesonide/Formoterol Fumarate 2 puff INHALATION RT-BID 03/21/25 03/21/25 History [Symbicort 160-4.5 Mcg Inhaler] Escitalopram [Lexapro] 20 mg PO DAILY 03/21/25 03/21/25 History Losartan [Cozaar] 25 mg PO BID 03/21/25 03/21/25 History Allergies Allergy/AdvReac Type Severity Reaction Status Date / Time cephalexin [From Keflex] Allergy Unknown Verified 03/21/25 15:09 hydrocodone bitartrate Allergy flushed Verified 03/21/25 15:09 [From Vicodin] skin/gets hot latex Allergy Rash/Hives/red Verified 03/21/25 15:09 skin Penicillins Allergy Unknown Verified 03/21/25 15:09 Childhood adhesive AdvReac blisters Verified 03/21/25 15:09 dapagliflozin [From Farxiga] AdvReac decreased Verified 03/21/25 15:09 BP steri strips AdvReac blisters Uncoded 03/21/25 15:09 Physical Exam Vitals: Vital Signs Temp Pulse Pulse Resp BP BP Pulse Ox 03/22/25 07:00 98.6 F 87 15 149/80 96 03/22/25 02:00 98.1 F 92 17 118/72 96 03/21/25 20:11 88 18 128/47 98 03/21/25 20:00 98.1 F 87 17 101/53 96 03/21/25 16:00 84 17 148/82 99 03/21/25 15:34 84 18 127/57 99 03/21/25 13:00 97.9 F 82 18 124/78 98 Intake and Output 03/21/25 03/22/25 03/22/25 22:59 06:59 14:59 Intake Total 68 Balance 68 Intake: Intake, IV Titration 68 Amount Heparin Sod,Pork in 0.45% 68 NaCl 25,000 unit In 0.45 % NaCl 1 250ml.bag @ 11. 023 UNITS/KG/HR 10 mls/hr IV .Q24H [facility] Rx#: [id number] Other: Voiding Method Bedside Commode # Voids 2 Weight 90.718 kg Results 03/22/25 01:57 03/22/25 01:57 Cardiac Enzymes 03/21/25 03/21/25 03/21/25 Range/Units 13:44 13:44 19:01 AST 39 H (14-36) U/L Troponin I <0.012 0.069 H* (0.000-0.034) ng/mL 03/21/25 03/22/25 Range/Units 21:54 01:57 AST 47 H (14-36) U/L Troponin I 0.152 H* (0.000-0.034) ng/mL Coagulation 03/21/25 03/22/25 Range/Units 13:44 01:57 PT 10.2 (10.0-12.5) sec APTT 23.4 49.7 H (22.0-30.0) sec CBC 03/21/25 03/22/25 Range/Units 13:44 01:57 WBC 7.01 6.36 (4.50-10.00) 10*3/uL RBC 4.82 4.30 (4.10-5.20) 10*6/uL Hgb 14.6 12.6 (12.0-15.0) g/dL Hct 41.5 38.4 (37.2-46.3) % Plt Count 267 252 (140-440) 10*3/uL Comprehensive Metabolic Panel 03/21/25 03/22/25 Range/Units 13:44 01:57 Sodium 136 L 134 L (137-145) mmol/L Potassium 4.0 4.4 (3.5-5.1) mmol/L Chloride 102 100 (98-107) mmol/L Carbon Dioxide 22 23 (22-30) mmol/L BUN 21 H 19 H (7-17) mg/dL Creatinine 0.70 0.65 (0.52-1.04) mg/dL Glucose 202 H 151 H (74-99) mg/dL Calcium 9.6 9.0 (8.4-10.2) mg/dL AST 39 H 47 H (14-36) U/L ALT 36 H 43 H (4-34) U/L Alkaline Phosphatase 173 H 146 H (38-126) U/L Total Protein 7.6 6.5 (6.3-8.2) g/dL Albumin 4.7 4.0 (3.5-5.0) g/dL Current Medications Generic Name Dose Route Start Last Admin Trade Name Freq PRN Reason Stop Dose Admin Acetaminophen 650 mg 03/21/25 15:22 Acetaminophen Tab 325 Mg Tab PO Q6HR PRN Mild Pain or Fever > 100.5 Albuterol Sulfate 2.5 mg 03/21/25 15:30 Albuterol Nebulized 2.5 Mg/3 Ml INHALATION RT-QID PRN Shortness Of Breath Aspirin 81 mg 03/22/25 09:00 03/22/25 08:52 Aspirin 81 Mg PO 81 mg DAILY DESIRE Administration Atorvastatin Calcium 40 mg 03/22/25 09:00 03/22/25 08:52 Atorvastatin 40 Mg Tab PO 40 mg DAILY DESIRE Administration Budesonide/Formoterol Fumarate 2 puff 03/21/25 20:00 03/22/25 06:44 Symbicort 160-4.5 Mcg Inhaler INHALATION 2 puff RT-BID [facility]IRE Administration Dextrose/Water 25 ml 03/21/25 17:13 Dextrose 50% Syringe 50 Ml IVP PER PROTOCOL PRN Hypoglycemia Protocol Dextrose/Water 50 ml 03/21/25 17:13 Dextrose 50% Syringe 50 Ml IVP PER PROTOCOL PRN Hypoglycemia Protocol Escitalopram Oxalate 20 mg 03/22/25 09:00 03/22/25 08:52 Escitalopram 20 Mg Tab PO 20 mg DAILY DESIRE Administration Heparin Sodium (Porcine) 0 unit 03/21/25 19:45 Heparin Sodium 1,000 Un/Ml (10ml Vl) IV PER PROTOCOL PRN Low PTT Protocol Metronidazole 500 mg/ IV 100 mls @ 100 mls/hr 03/21/25 18:00 03/22/25 06:23 Solution IVPB 100 mls/hr Q6HR DESIRE Administration Levofloxacin 750 mg/ IV 150 mls @ 100 mls/hr 03/21/25 18:00 03/21/25 18:23 Solution IVPB 100 mls/hr Q24H [facility] Administration Heparin Sodium/Sodium Chloride 250 mls @ 10 mls/hr 03/21/25 19:45 03/22/25 02:54 25,000 unit/ Sodium Chloride IV 11.02 units/kg/hr .Q24H [facility] 10 mls/hr Titration Protocol 11.023 UNITS/KG/HR Insulin Human Lispro 0 unit 03/21/25 17:30 03/22/25 06:30 Insulin Lispro (Humalog) 100 Unit/Ml 10 Ml Vl SQ 1 unit ACHS DESIRE Administration Protocol Ketorolac Tromethamine 15 mg 03/21/25 15:22 Ketorolac 15 Mg/Ml 1 Ml Vial IVP 03/24/25 15:23 Q6HR PRN Moderate Pain (Scale 4 to 6) Losartan Potassium 25 mg 03/21/25 21:00 03/22/25 08:52 Losartan 25 Mg Tab PO 25 mg BID DESIRE Administration Montelukast Sodium 10 mg 03/22/25 09:00 03/22/25 08:52 Montelukast 10 Mg Tab PO 10 mg DAILY DESIRE Administration Morphine Sulfate 4 mg 03/21/25 15:22 03/21/25 15:40 Morphine Sulfate 4 Mg/Ml Syringe IV 4 mg Q4HR PRN Administration Severe Pain (Scale 7 to 10) Naloxone HCl 0.2 mg 03/21/25 15:22 Naloxone 0.4 Mg/Ml 1 Ml Vial IV Q2M PRN Opioid Reversal Pantoprazole Sodium 40 mg 03/22/25 07:30 03/22/25 06:23 Pantoprazole 40 Mg Tablet PO 40 mg [id number] DESIRE Administration Prochlorperazine Edisylate 10 mg 03/21/25 17:14 Prochlorperazine Inj 10 Mg/2 Ml Vial IVP Q6H PRN Nausea Intake and Output 03/21/25 03/22/25 03/22/25 22:59 06:59 14:59 Intake Total 68 Balance 68 Intake: Intake, IV Titration 68 Amount Heparin Sod,Pork in 0.45% 68 NaCl 25,000 unit In 0.45 % NaCl 1 250ml.bag @ 11. 023 UNITS/KG/HR 10 mls/hr IV .Q24H [facility] Rx#: [id number] Other: Voiding Method Bedside Commode # Voids 2 Weight 90.718 kg 03/22/25 01:57 03/22/25 01:57
[2025-03-22 10:25] LABS: NT-Pro-B-Type Natriuretic Pept 195 pg/mL
[2025-03-22] MEDS: METOPROLOL TARTRATE 25 MG TAB PO SCH (11:49)
[2025-03-22 12:11] LABS: Glucose,Whole Blood 287 mg/dL (70-110)
[2025-03-22 14:21] LABS: Chol/HDL Ratio 3.21 Ratio; LDL Cholesterol,Calculated 123.7 mg/dL (0.0-131.0); VLDL Calculation 13.32 mg/dL (5.00-40.00)
--- NOTE | 2025-03-22 15:39 | P.PN ---
Subjective Progress Note Date: 03/22/25 Hospital Course: Patient is a very pleasant 59-year-old female with a past medical history of hypertension and heart murmur follows with Dr. Izaguirre, hyperlipidemia, type II dge-[id number]-trljzudop diabetes mellitus, asthma/COPD not home oxygen dependent, GERD, and anxiety. She presented to the emergency department with a chief complaint of chest pain. Patient reports experiencing intermittent chest pain/pressure beginning in epigastric region radiating to left anterior chest associated by pain/tingling down left arm beginning approximately 1 week ago and progressively worsening. Patient reports today pain was persistent and unrelenting accompanied by nausea and vomiting so she came to the emergency department for evaluation. Upon arrival to our facility, patient underwent evaluation in the emergency department. Vital signs upon arrival show blood pressure 82, respiratory rate 18, temp 97.9 F, and SpO2 of 98% on room air. EKG completed showing normal sinus rhythm at 79 bpm with no significant T wave or ST abnormality showing no signs of acute ischemia upon personal review and interpretation. Chest x-ray negative for acute cardiopulmonary process. Labs completed and reviewed. CBC unremarkable. Coagulation profile normal findings. BMP showing mild prerenal azotemia with BUN of 21 otherwise normal findings. Blood glucose was elevated at 202. Magnesium was slightly low at 1.7. Liver profile showing transaminitis with AST of 39, AST of 36, and alkaline phosphatase of 173. Troponin was negative at less than 0.012. Lipase was nor mal at 101. Patient was admitted under our services with consultation to cardiology. CT abdomen and pelvis showing evidence of pneumobilia. Patient denies history of ERCP or choledocholithiasis, but did have laparoscopic cholecystectomy. Patient reports she also had to undergo dilation of her malachi iary duct because it was closed. General Surgery evaluated. Recommending increasing Protonix to 40 mg twice daily and clearing patient from their perspective at this time.Troponins trended overnight resulting at less than 0.012, and 0.069, and 0.152. proBNP 895. Lipid profile unremarkable. Hgb A1c 7.8%. Patient was started on IV heparin infusion for treatment of NSTEMI. Cardiology evaluated to take patient for cardiac catheterization on Monday Physical exam: Patient seen and fully evaluated at the bedside. Nausea, vomiting, and epigastric pain resolved. States she continues to have intermittent chest pressure, but currently denies at this time. Denies shortness of breath or any other complaints at this time. Vital signs reviewed and stable. General: Nontoxicand appears stated age. No acute distress. Derm: Skin warm and dry, normal coloration for ethnicity. Head: Atraumatic, normocephalic and symmetric. Eyes: EOM's intact, no lid lag, and anicteric sclera Mouth: no lip lesions, mucus membranes moist Cardiovascular: regular rate and rhythm with normal S1S2, soft systolic murmur, positive posterior tibial pulses bilaterally, and cap refill < 2 seconds. Lungs: Respirations even, regular, and unlabored on room air. Lungs CTA malachi aterally, no rhonchi, no rales, no wheezing, and no accessory muscle usage. Abdominal: soft distended, tenderness to epigastric region Ext: ROM intact. No gross muscle atrophy, no edema, no contractures Neuro: Speech clear, face symmetrical and CN II-XII grossly intact with no noted focal neuro deficits Psych: Alert and oriented to person, place, time, and situation. Appropriate and pleasant affect. Assessment and Plan of Care: NSTEMI -Cardiology consulted, appreciate recommendations. -Telemetry monitoring. -Troponins trended overnight resulting at less than 0.012, and 0.069, and 0.152. proBNP 895. Lipid profile unremarkable. Hgb A1c 7.8%. -Patient was started on IV heparin infusion for treatment of NSTEMI, continue low intensity heparin infusion with close monitoring of PTT for goal therapeutic range of 45 to 79 seconds. Currently PTT therapeutic at 49.7 seconds. -Aspirin 81 mg daily, atorvastatin 40 mg daily, losartan 25 mg twice daily, and metoprolol 25 mg twice daily. -Echocardiogram completed and currently pending results. -Patient scheduled for heart catheterization on Monday. Epigastric pain, resolved Transaminitis Nausea and vomiting, resolved - CT abdomen and pelvis showing evidence of pneumobilia. - Patient denies history of ERCP or choledocholithiasis, but did have laparoscopic cholecystectomy. Patient reports she also had to undergo dilation of her biliary duct because it was closed. - General Surgery evaluated. Recommending increasing Protonix to 40 mg twice daily and clearing patient from their perspective at this time. - Continue Compazine 10 mg IVP every 6 hours as needed for nausea or vomiting. Diabetes mellitus with hyperglycemia - Blood glucose 170. Hold Actos and place patient on glycemic protocol with NovoLog sliding scale. Hemoglobin A1c with a.m. labs. Hypertension -Monitor vital signs and continue daily medication regimen with losartan 25 mg twice daily. Hyperlipidemia -Continue daily medication regimen with atorvastatin 40 mg daily. Asthma/COPD, not in acute exacerbation -Ventolin inhaler 2 puffs 4 times daily as needed for wheezing/shortness of breath, Symbicort 160-4.5 mcg inhaler 2 puffs twice daily, and Singulair 10 mg nightly. Anxiety -Continue daily medication regimen with Lexapro 20 mg daily. Data and imaging reviewed: Labs reviewed. Troponins trended overnight resulting at less than 0.012, and 0.069, and 0.152. Lipid profile unremarkable. CBC unremarkable. BMP showing Na+ 134, BUN of 19. Blood glucose 151. Transaminitis AST 47, ALT of 43, and alkaline phosphatase of 146. proBNP 895. Hgb A1c 7.8%. Vital Signs reviewed. Blood Pressure 149/80, Heart Rate 87, Respiratory Rate 15, Temp 98.6 F, SPO2 96% on room air. CODE STATUS: Full code DVT prophylaxis: Lovenox Discussed with: Patient, patient's family at bedside, RN, and Cardiac Exercise Specialist Anticipated discharge date: Pending clinical course Anticipated discharge place: Home Patient was seen independently by Nurse Practitioner. This document was prepared using [employer] dictation software. Please allow for errors in shrimp peeling machine operator while rare they do occur. Keith Tripp NP rendered care for this patient independently, reviewed the findings and plan as documented in the note above and agree with plan. I did not physically speak with or examine the patient on this date. Objective - Vital Signs Vital signs: Vital Signs Temp 98.6 F 03/22/25 07:00 Pulse 87 03/22/25 07:00 Resp 15 03/22/25 07:00 BP 149/80 03/22/25 07:00 Pulse Ox 96 03/22/25 07:00 FiO2 Intake & Output 03/21/25 03/22/25 03/22/25 18:59 06:59 18:59 Intake Total 68 Balance 68 Weight 90.718 kg 90.718 kg Intake: Intake, IV Titration 68 Amount Heparin Sod,Pork in 0.45% 68 NaCl 25,000 unit In 0.45 % NaCl 1 250ml.bag @ 11. 023 UNITS/KG/HR 10 mls/hr IV .Q24H [facility] Rx#: [id number] Other: Voiding Method Bedside Commode # Voids 2 - Labs CBC & Chem 7: 03/22/25 01:57 03/22/25 01:57 Labs: Abnormal Lab Results - Last 24 Hours (Table) 03/21/25 03/21/25 03/21/25 Range/Units 13:44 17:45 19:01 Eosinophils # (0.04-0.35) X 10*3/uL APTT (22.0-30.0) sec Sodium 136 L (137-145) mmol/L BUN 21 H (7-17) mg/dL Glucose 202 H (74-99) mg/dL POC Glucose (mg/dL) 143 H (70-110) mg/dL Hemoglobin A1c (<=6.0) % AST 39 H (14-36) U/L ALT 36 H (4-34) U/L Alkaline Phosphatase 173 H (38-126) U/L Troponin I 0.069 H* (0.000-0.034) ng/mL 03/21/25 03/21/25 03/22/25 Range/Units 21:02 21:54 01:57 Eosinophils # (0.04-0.35) X 10*3/uL APTT (22.0-30.0) sec Sodium (137-145) mmol/L BUN (7-17) mg/dL Glucose (74-99) mg/dL POC Glucose (mg/dL) 221 H (70-110) mg/dL Hemoglobin A1c 7.8 H (<=6.0) % AST (14-36) U/L ALT (4-34) U/L Alkaline Phosphatase (38-126) U/L Troponin I 0.152 H* (0.000-0.034) ng/mL 03/22/25 03/22/25 03/22/25 Range/Units 01:57 01:57 01:57 Eosinophils # 0.03 L (0.04-0.35) X 10*3/uL APTT 49.7 H (22.0-30.0) sec Sodium 134 L (137-145) mmol/L BUN 19 H (7-17) mg/dL Glucose 151 H (74-99) mg/dL POC Glucose (mg/dL) (70-110) mg/dL Hemoglobin A1c (<=6.0) % AST 47 H (14-36) U/L ALT 43 H (4-34) U/L Alkaline Phosphatase 146 H (38-126) U/L Troponin I (0.000-0.034) ng/mL //25 Range/Units 06:25 Eosinophils # (0.04-0.35) X 10*3/uL APTT (22.0-30.0) sec Sodium (137-145) mmol/L BUN (7-17) mg/dL Glucose (74-99) mg/dL POC Glucose (mg/dL) 170 H (70-110) mg/dL Hemoglobin A1c (<=6.0) % AST (14-36) U/L ALT (4-34) U/L Alkaline Phosphatase (38-126) U/L Troponin I (0.000-0.034) ng/mL
[2025-03-22 17:42] LABS: Glucose,Whole Blood 136 mg/dL (70-110)
[2025-03-22 19:40] LABS: Glucose,Whole Blood 185 mg/dL (70-110)
[2025-03-23 05:50] LABS: Glucose,Whole Blood 140 mg/dL (70-110)
--- NOTE | 2025-03-23 11:40 | CA ---
Transthoracic Echo Report Name: Kae Unger Age: 59 Gender: F : 1965 Exam Date: 03/22/2025 13:59 Exam Location: [facility] Ht (in): 63 Wt (lb): 200 Ordering Physician: Be Dobbs MD ([id number]) Attending/Referring Phys: International Controller Lizet Sanz RDCS Procedure CPT: Indications: nstemi Cardiac Hx: Technical Quality: Good Contrast 1: Total Dose (mL): Contrast 2: Total Dose (mL): MEASUREMENTS (Male / Female) Normal Values 2D ECHO LV Diastolic Diameter PLAX 4.1 cm 4.2 - 5.9 / 3.9 - 5.3 cm LV Systolic Diameter PLAX 3.2 cm IVS Diastolic Thickness 1.3 cm 0.6 - 1.0 / 0.6 - 0.9 cm LVPW Diastolic Thickness 1.3 cm 0.6 - 1.0 / 0.6 - 0.9 cm LV Relative Wall Thickness 0.6 RV Internal Dim ED PLAX 3.1 cm LA Systolic Diameter LX 4.2 cm 3.0 - 4.0 / 2.7 - 3.8 cm LV Diastolic Volume MOD BP 117.4 cm??? 67 - 155 / 56 - 104 cm??? LV Systolic Volume MOD BP 42.7 cm??? 22 - 58 / 19 - 49 cm??? LV Ejection Fraction MOD BP 63.6 % >= 55 % LV Cardiac Index MOD BP 2332.0 cm???/min???m??? LV Diastolic Volume MOD 4C 132.0 cm??? LV Systolic Volume MOD 4C 46.6 cm??? LV Ejection Fraction MOD 4C 64.7 % LV Cardiac Index MOD 4C 2665.7 cm???/min???m??? LV Diastolic Length 4C 7.0 cm LV Systolic Length 4C 5.5 cm LV Diastolic Volume MOD 2C 102.2 cm??? LV Systolic Volume MOD 2C 38.4 cm??? LV Ejection Fraction MOD 2C 62.4 % LV Cardiac Index MOD 2C 1991.9 cm???/min???m??? LV Diastolic Length 2C 7.3 cm LV Systolic Length 2C 5.3 cm LA Volume 80.9 cm??? 18 - 58 / 22 - 52 cm??? LA Volume Index 39.5 cm???/m??? 16 - 28 cm???/m??? M-MODE Aortic Root Diameter MM 2.7 cm AV Cusp Separation MM 1.6 cm DOPPLER AV Peak Velocity 210.8 cm/s AV Peak Gradient 17.8 mmHg AI Peak Velocity 361.8 cm/s AI Peak Gradient 52.4 mmHg AI Pressure Half Time 1667.9 ms MV Area PHT 4.2 cm??? MR Peak Velocity 510.1 cm/s MR Peak Gradient 104.1 mmHg Mitral E Point Velocity 88.0 cm/s Mitral A Point Velocity 105.9 cm/s Mitral E to A Ratio 0.8 MV Deceleration Time 181.3 ms TR Peak Velocity 219.8 cm/s TR Peak Gradient 19.3 mmHg Right Ventricular Systolic Press 24.3 mmHg FINDINGS Left Ventricle Left ventricular ejection fraction is estimated at 55-60 %. Mildly increased septal wall thickness. Mildly increased posterior wall thickness. Mildly increased left ventricular diastolic volume. Left ventricular cavity size normal. Normal left ventricular wall motion. Right Ventricle Normal right ventricular size. Right ventricular systolic pressure within normal limits. Right Atrium Normal right atrial size. No right atrial thrombus or mass seen. Left Atrium Mildly increased left atrial diameter. Moderately increased left atrial volume. Mildly increased left atrial area. No left atrial thrombus or mass present. Mitral Valve Structurally normal mitral valve. No evidence for mitral valve prolapse. No mitral stenosis. Mild mitral regurgitation. Aortic Valve Trileaflet aortic valve. Thickened aortic valve without stenosis. Mild aortic regurgitation. Tricuspid Valve Structurally normal tricuspid valve. Mild tricuspid regurgitation. Pulmonic Valve Structurally normal pulmonic valve. No pulmonic regurgitation. Pericardium No pericardial effusion. Aorta Normal size aortic root and proximal ascending aorta. CONCLUSIONS LVEF 55% Mild concentric LVH No obvious regional wall motion abnormality Mild left atrial dilatation Mild mitral regurgitation, Mild aortic regurgitation Mild tricuspid regurgitation Normal RV size and systolic function with normal RVSP Previewed by: Dr Be Dobbs (Electronically Signed) Final Date: 23 March 2025 11:40
--- NOTE | 2025-03-23 12:03 | P.CRDCN ---
History of Present Illness Consult date: 03/23/25 History of present illness: HPI: The patient is a 59-year-old female with a history of hypertension, dyslipidemia, type 2 diabetes, COPD, GERD, and anxiety. She presented to the ER with substantial chest pain. The pain began in the epigastric region, radiating to the left anterior chest, and has been progressively worsening over the last week. Yesterday, the pain became more persistent and was accompanied by nausea and vomiting, prompting her ER visit. Additional symptoms include headache, lightheadedness, dizziness, palpitations, shortness of breath, cough, and congestion were not present. Patient is known to Dr. Izaguirre 03/23/2024 Seen and examined at bedside this a.m. denies any cardiovascular complaints Echocardiogram did not show any regional wall motion normality and showed preserved LV size and systolic function Blood pressure is mildly elevated which she attributes to her stress being in the hospital She has given me verbal consent to have heart catheterization done tomorrow Pertinent cardiac Labs: - 02/2025: Hemoglobin 14.6, Platelet 267, Bicarbonate 21, Creatinine 0.7, Sodium 136, ALP 173, Initial Troponin negative, Repeat Troponin 0.06, 0.15 A1c 7.8 TSH 1.8 LDL 123, BNP 195 Cardiac home meds: - Losartan 25 mg, Lipitor 40 mg, Pioglitazone 30 mg Pertinent cardiac testing: - EK02/2025: Sinus rhythm, heart rate 110 bpm, non-specific minimal ST changes in lead 3 - Chest X-ray: 02/2025: No signs of significant cardiopulmonary congestion Echo from this admission shows an EF of 55%, grade 1 diastolic function, no regional wall motion normality or major valvular dysfunction REVIEW OF SYSTEMS: 14 point review of systems is negative except what is mentioned above in HPI. PHYSICAL EXAMINATION: Neck: Brisk carotid upstroke, no jugular venous distention. Lungs: Clear to auscultation. Heart: Regular rate and rhythm, S1-S2, no murmur or rub. Abdomen: Soft nontender, positive bowel sounds. Extremities: No edema, intact distal pulses. Neuro: Alert, oriented, no focal deficits. Detailed neuro exam was not performed. ASSESSMENT: # NSTEMI, another differential of stress cardiomyopathy because of recent history of family member and stress and bereavement. # Substantial chest pressure # Essential hypertension # Type 2 diabetes (not on metformin) # Nausea and vomiting # Mild transaminitis, likely because of nonalcoholic fatty liver # History of laparoscopic cholecystectomy with prior reported need for dilatation of bile duct # Pneumobilia noted on CT abdomen PLAN: # Aspirin 81 mg, # Lipitor 40 mg # Continue IV heparin drip # Losartan 25 mg, # Add Metoprolol 25 mg BID Plan for cardiac authorization on Monday with Dr. Izaguirre Further GI workup for transaminitis and pneumobilia Recommend first-line medical management for diabetes with metformin and GLP analogs and SGLT2 inhibitors. Request PCP to help with this Past Medical History Past Medical History: Asthma, Diabetes Mellitus, GERD/Reflux, Hyperlipidemia, Hypertension Additional Past Medical History / Comment(s): hx heart murmur, hiatal hernia History of Any Multi-Drug Resistant Organisms: None Reported Past Surgical History: Breast Surgery, Cholecystectomy, Hysterectomy, Orthopedic Surgery Additional Past Surgical History / Comment(s): rt knee arthroscopy, left breast biopsy.. left ankle ORIF/ plate and screws Past Anesthesia/Blood Transfusion Reactions: Postoperative Nausea & Vomiting (PONV) Additional Past Anesthesia/Blood Transfusion Reaction / Comment(s): Slow to wake up @times. Past Psychological History: Anxiety Smoking Status: Former smoker Past Alcohol Use History: Rare Additional Past Alcohol Use History / Comment(s): Quit smoking in 1999, smoked on and off for 22 yrs, <1PPD. Past Drug Use History: None Reported - Past Family History Sister(s) Family Medical History: Cancer Medications and Allergies Home Medications Medication Instructions Recorded Confirmed Type Omeprazole [PriLOSEC] 40 mg PO DAILY 10/14/14 03/21/25 History Pioglitazone [Actos] 30 mg PO DAILY 11/05/18 03/21/25 History Albuterol Inhaler [Ventolin Hfa 2 puff INHALATION RT-QID PRN 09/13/21 03/21/25 History Inhaler] Atorvastatin Calcium [Lipitor] 40 mg PO DAILY 09/13/21 03/21/25 History Montelukast Sodium [Singulair] 10 mg PO DAILY 04/21/22 03/21/25 History Budesonide/Formoterol Fumarate 2 puff INHALATION RT-BID 03/21/25 03/21/25 History [Symbicort 160-4.5 Mcg Inhaler] Escitalopram [Lexapro] 20 mg PO DAILY 03/21/25 03/21/25 History Losartan [Cozaar] 25 mg PO BID 03/21/25 03/21/25 History Allergies Allergy/AdvReac Type Severity Reaction Status Date / Time cephalexin [From Keflex] Allergy Unknown Verified 03/21/25 15:09 hydrocodone bitartrate Allergy flushed Verified 03/21/25 15:09 [From Vicodin] skin/gets hot latex Allergy Rash/Hives/red Verified 03/21/25 15:09 skin Penicillins Allergy Unknown Verified 03/21/25 15:09 Childhood adhesive AdvReac blisters Verified 03/21/25 15:09 dapagliflozin [From Farxiga] AdvReac decreased Verified 03/21/25 15:09 BP steri strips AdvReac blisters Uncoded 03/21/25 15:09 Physical Exam Vitals: Vital Signs Temp Pulse Resp BP Pulse Ox FiO2 03/23/25 08:30 96 21 03/23/25 07:18 98.6 F 62 15 151/86 96 03/23/25 02:00 98.0 F 69 17 151/82 98 03/22/25 18:13 98.0 F 67 17 174/73 98 03/22/25 14:30 98.2 F 82 15 145/79 97 Intake and Output 03/22/25 03/23/25 03/23/25 22:59 06:59 14:59 Intake Total 150.667 Balance 150.667 Intake: Intake, IV Titration 150.667 Amount Heparin Sod,Pork in 0.45% 150.667 NaCl 25,000 unit In 0.45 % NaCl 1 250ml.bag @ 11. 023 UNITS/KG/HR 10 mls/hr IV .Q24H [facility] Rx#: [id number] Other: Voiding Method Toilet Bedside Commode # Voids 2 3 Results 03/22/25 01:57 03/22/25 01:57 Coagulation 03/23/25 Range/Units 04:05 APTT 48.9 H (22.0-30.0) sec Lipids 03/22/25 Range/Units 01:57 Triglycerides 66.60 (0.00-149.00) mg/dL Cholesterol 199.00 (0.00-200.00) mg/dL HDL Cholesterol 62.00 H (40.00-60.00) mg/dL Cholesterol/HDL Ratio 3.21 Ratio Current Medications Generic Name Dose Route Start Last Admin Trade Name Freq PRN Reason Stop Dose Admin Acetaminophen 650 mg 03/21/25 15:22 Acetaminophen Tab 325 Mg Tab PO Q6HR PRN Mild Pain or Fever > 100.5 Albuterol Sulfate 2.5 mg 03/21/25 15:30 Albuterol Nebulized 2.5 Mg/3 Ml INHALATION RT-QID PRN Shortness Of Breath Alprazolam 0.25 mg 03/22/25 10:07 Alprazolam 0.25 Mg Tab PO Q6HR PRN Mild Anxiety Aspirin 81 mg 03/22/25 09:00 03/23/25 09:13 Aspirin 81 Mg PO 81 mg DAILY [facility] Administration Atorvastatin Calcium 40 mg 03/22/25 09:00 03/23/25 09:12 Atorvastatin 40 Mg Tab PO 40 mg DAILY [facility] Administration Budesonide/Formoterol Fumarate 2 puff 03/21/25 20:00 03/23/25 08:29 Symbicort 160-4.5 Mcg Inhaler INHALATION 2 puff RT-BID [facility] Administration Dextrose/Water 25 ml 03/21/25 17:13 Dextrose 50% Syringe 50 Ml IVP PER PROTOCOL PRN Hypoglycemia Protocol Dextrose/Water 50 ml 03/21/25 17:13 Dextrose 50% Syringe 50 Ml IVP PER PROTOCOL PRN Hypoglycemia Protocol Escitalopram Oxalate 20 mg 03/22/25 09:00 03/23/25 09:12 Escitalopram 20 Mg Tab PO 20 mg DAILY [facility] Administration Heparin Sodium (Porcine) 0 unit 03/21/25 19:45 Heparin Sodium 1,000 Un/Ml (10ml Vl) IV PER PROTOCOL PRN Low PTT Protocol Heparin Sodium/Sodium Chloride 250 mls @ 10 mls/hr 03/21/25 19:45 03/22/25 17:58 25,000 unit/ Sodium Chloride IV 11.02 units/kg/hr .Q24H [facility] 9.997 mls/hr Administration Protocol 11.023 UNITS/KG/HR Heparin Sodium (Porcine) 10, 1,001 mls @ 999 mls/hr 03/24/25 07:00 000 unit/ Sodium Chloride IRRIGATION 03/24/25 23:00 ONCE PRN INTRA-OP Heparin Sodium (Porcine) 2,500 250.5 mls @ 250 mls/hr 03/24/25 07:00 unit/ Sodium Chloride IRRIGATION 03/24/25 23:00 ONCE PRN INTRA-OP Sodium Chloride 1,000 ml/ IV 1,000 mls @ 90.718 mls/hr 03/24/25 04:00 Solution IV .Q11H2M [facility] 1 ML/KG/HR Insulin Human Lispro 0 unit 03/21/25 17:30 03/23/25 05:57 Insulin Lispro (Humalog) 100 Unit/Ml 10 Ml Vl SQ Not Given ACHS [facility] Protocol Ketorolac Tromethamine 15 mg 03/21/25 15:22 Ketorolac 15 Mg/Ml 1 Ml Vial IVP 03/24/25 15:23 Q6HR PRN Moderate Pain (Scale 4 to 6) Losartan Potassium 25 mg 03/21/25 21:00 03/23/25 09:13 Losartan 25 Mg Tab PO 25 mg BID [facility] Administration Metoprolol Tartrate 25 mg 03/22/25 10:15 03/23/25 09:13 Metoprolol Tartrate 25 Mg Tab PO 25 mg BID [facility] Administration Montelukast Sodium 10 mg 03/22/25 09:00 03/23/25 09:13 Montelukast 10 Mg Tab PO 10 mg DAILY [facility] Administration Morphine Sulfate 4 mg 03/21/25 15:22 03/21/25 15:40 Morphine Sulfate 4 Mg/Ml Syringe IV 4 mg Q4HR PRN Administration Severe Pain (Scale 7 to 10) Naloxone HCl 0.2 mg 03/21/25 15:22 Naloxone 0.4 Mg/Ml 1 Ml Vial IV Q2M PRN Opioid Reversal Nitroglycerin 0.4 mg 03/22/25 10:07 Nitroglycerin Sl Tabs 0.4 Mg Tab SUBLINGUAL Q5M PRN Chest Pain Pantoprazole Sodium 40 mg 03/22/25 21:00 03/23/25 09:12 Pantoprazole 40 Mg Tablet PO 40 mg BID [facility] Administration Prochlorperazine Edisylate 10 mg 03/21/25 17:14 Prochlorperazine Inj 10 Mg/2 Ml Vial IVP Q6H PRN Nausea Intake and Output 03/22/25 03/23/25 03/23/25 22:59 06:59 14:59 Intake Total 150.667 Balance 150.667 Intake: Intake, IV Titration 150.667 Amount Heparin Sod,Pork in 0.45% 150.667 NaCl 25,000 unit In 0.45 % NaCl 1 250ml.bag @ 11. 023 UNITS/KG/HR 10 mls/hr IV .Q24H [facility] Rx#: [id number] Other: Voiding Method Toilet Bedside Commode # Voids 2 3 03/22/25 01:57 03/22/25 01:57
[2025-03-23 12:22] LABS: Glucose,Whole Blood 262 mg/dL (70-110)
--- NOTE | 2025-03-23 12:53 | P.PN ---
Objective - Vital Signs Vital signs: Vital Signs Temp 98.6 F 03/23/25 07:18 Pulse 62 03/23/25 07:18 Resp 15 03/23/25 07:18 BP 151/86 03/23/25 07:18 Pulse Ox 96 03/23/25 08:30 FiO2 21 03/23/25 08:30 Intake & Output 03/22/25 03/23/25 03/23/25 18:59 06:59 18:59 Intake Total 250.667 Balance 250.667 Intake: Intake, IV Titration 250.667 Amount Heparin Sod,Pork in 0.45% 150.667 NaCl 25,000 unit In 0.45 % NaCl 1 250ml.bag @ 11. 023 UNITS/KG/HR 10 mls/hr IV .Q24H [facility] Rx#: [id number] metroNIDAZOLE-NS PMX 500 100 mg In Saline 1 100ml.bag @ 100 mls/hr IVPB Q6HR [facility] Rx#:[id number] Other: Voiding Method Toilet Bedside Commode # Voids 3 - Labs CBC & Chem 7: 03/22/25 01:57 03/22/25 01:57 Labs: Abnormal Lab Results - Last 24 Hours (Table) 03/22/25 03/22/25 03/22/25 Range/Units 01:57 17:40 19:36 APTT (22.0-30.0) sec POC Glucose (mg/dL) 136 H 185 H (70-110) mg/dL HDL Cholesterol 62.00 H (40.00-60.00) mg/dL 03/23/25 03/23/25 03/23/25 Range/Units 04:05 05:48 12:21 APTT 48.9 H (22.0-30.0) sec POC Glucose (mg/dL) 140 H 262 H (70-110) mg/dL HDL Cholesterol (40.00-60.00) mg/dL Assessment and Plan Assessment: 59 yo female w/ resolving abdominal pain increase protonix bid karafate ok for discharge Time with Patient: Less than 30
--- NOTE | 2025-03-23 15:04 | P.PN ---
Subjective Progress Note Date: 03/23/25 Hospital Course: Patient is a very pleasant 59-year-old female with a past medical history of hypertension and heart murmur follows with Dr. Izaguirre, hyperlipidemia, type II [id number] diabetes mellitus, asthma/COPD not home oxygen dependent, GERD, and anxiety. She presented to the emergency department with a chief complaint of chest pain. Patient reports experiencing intermittent chest pain/pressure beginning in epigastric region radiating to left anterior chest associated by pain/tingling down left arm beginning approximately 1 week ago and progressively worsening. Patient reports today pain was persistent and unrelenting accompanied by nausea and vomiting so she came to the emergency department for evaluation. Upon arrival to our facility, patient underwent evaluation in the emergency department. Vital signs upon arrival show blood pressure 82, respiratory rate 18, temp 97.9 F, and SpO2 of 98% on room air. EKG completed showing normal sinus rhythm at 79 bpm with no significant T wave or ST abnormality showing no signs of acute ischemia upon personal review and interpretation. Chest x-ray negative for acute cardiopulmonary process. Labs completed and reviewed. CBC unremarkable. Coagulation profile normal findings. BMP showing mild prerenal azotemia with BUN of 21 otherwise normal findings. Blood glucose was elevated at 202. Magnesium was slightly low at 1.7. Liver profile showing transaminitis with AST of 39, AST of 36, and alkaline phosphatase of 173. Troponin was negative at less than 0.012. Lipase was nor mal at 101. Patient was admitted under our services with consultation to cardiology. CT abdomen and pelvis showing evidence of pneumobilia. Patient denies history of ERCP or choledocholithiasis, but did have laparoscopic cholecystectomy. Patient reports she also had to undergo dilation of her malachi iary duct because it was closed. General Surgery evaluated. Recommending increasing Protonix to 40 mg twice daily and clearing patient from their perspective at this time.Troponins trended overnight resulting at less than 0.012, and 0.069, and 0.152. proBNP 895. Lipid profile unremarkable. Hgb A1c 7.8%. Patient was started on IV heparin infusion for treatment of NSTEMI. Cardiology evaluated to take patient for cardiac catheterization on Monday Physical exam: Patient seen and fully evaluated at the bedside. Patient reports feeling great this morning and free from any complaints of chest pain, palpitations, shortness of breath, abdominal pain, nausea, or vomiting. She does report feeling anxious thinking about what they are going to find and the cardiac cath tomorrow, patient reports feeling extra anxious because her brother just from a heart attack. Xanax 0.25 mg is ordered for as needed anxiety. Vital signs reviewed and stable. General: Nontoxicand appears stated age. No acute distress. Derm: Skin warm and dry, normal coloration for ethnicity. Head: Atraumatic, normocephalic and symmetric. Eyes: EOM's intact, no lid lag, and anicteric sclera Mouth: no lip lesions, mucus membranes moist Cardiovascular: regular rate and rhythm with normal S1S2, soft systolic murmur, positive posterior tibial pulses bilaterally, and cap refill < 2 seconds. Lungs: Respirations even, regular, and unlabored on room air. Lungs CTA bilater ally, no rhonchi, no rales, no wheezing, and no accessory muscle usage. Abdominal: soft distended, tenderness to epigastric region Ext: ROM intact. No gross muscle atrophy, no edema, no contractures Neuro: Speech clear, face symmetrical and CN II-XII grossly intact with no noted focal neuro deficits Psych: Alert and oriented to person, place, time, and situation. Appropriate and pleasant affect. Assessment and Plan of Care: NSTEMI -Cardiology discussed plan of care with corrosion engineer patient undergo cardiac cath tomorrow morning. -Telemetry monitoring. -Troponins trended overnight resulting at less than 0.012, and 0.069, and 0.152. proBNP 895. Lipid profile unremarkable. Hgb A1c 7.8%. -Patient was started on IV heparin infusion for treatment of NSTEMI, continue low intensity heparin infusion with close monitoring of PTT for goal therapeutic range of 45 to 79 seconds. Currently PTT therapeutic at 48.9 seconds. -Aspirin 81 mg daily, atorvastatin 40 mg daily, losartan 25 mg twice daily, and metoprolol 25 mg twice daily. -Echocardiogram completed and currently pending results. -Patient scheduled for heart catheterization on Monday. Epigastric pain, resolved Transaminitis Nausea and vomiting, resolved - CT abdomen and pelvis showing evidence of pneumobilia. - Patient denies history of ERCP or choledocholithiasis, but did have laparoscopic cholecystectomy. Patient reports she also had to undergo dilation of her biliary duct because it was closed. - General Surgery evaluated. Recommending increasing Protonix to 40 mg twice daily and clearing patient from their perspective at this time. - Continue Compazine 10 mg IVP every 6 hours as needed for nausea or vomiting. Diabetes mellitus with hyperglycemia - Blood glucose 140. Hold Actos and continue patient on glycemic protocol with NovoLog sliding scale. Hemoglobin A1c 7.8% . Hypertension -Monitor vital signs and continue daily medication regimen with losartan 25 mg twice daily and metoprolol 25 mg twice daily. Hyperlipidemia -Continue daily medication regimen with atorvastatin 40 mg daily. Asthma/COPD, not in acute exacerbation -Ventolin inhaler 2 puffs 4 times daily as needed for wheezing/shortness of breath, Symbicort 160-4.5 mcg inhaler 2 puffs twice daily, and Singulair 10 mg nightly. Anxiety -Continue daily medication regimen with Lexapro 20 mg daily. Data and imaging reviewed: Labs reviewed. Lipid profile unremarkable. CBC unremarkable. BMP showing Na+ 134, BUN of 19. Blood glucose 151. Transaminitis AST 47, ALT of 43, and alkaline phosphatase of 146. proBNP 895. Hgb A1c 7.8%. PTT therapeutic at 48.9. Vital Signs reviewed. Blood Pressure 151/86, heart rate 42, respiratory rate 15, temp 98.6 F, and SpO2 of 96% on room air. CODE STATUS: Full code DVT prophylaxis: Lovenox Discussed with: Patient, patient's family at bedside, RN, and Cigarette Packer Anticipated discharge date: Pending clinical course Anticipated discharge place: Home Patient was seen independently by Nurse Practitioner. This document was prepared using [employer] dictation software. Please allow for errors in condenser tester while rare they do occur. Keith Tripp NP rendered care for this patient independently, reviewed the findings and plan as documented in the note above and agree with plan. I did not physically speak with or examine the patient on this date. Objective - Vital Signs Vital signs: Vital Signs Temp 98.6 F 03/23/25 07:18 Pulse 62 03/23/25 07:18 Resp 15 03/23/25 07:18 BP 151/86 03/23/25 07:18 Pulse Ox 96 03/23/25 08:30 FiO2 21 03/23/25 08:30 Intake & Output 03/22/25 03/23/25 03/23/25 18:59 06:59 18:59 Intake Total 250.667 Balance 250.667 Intake: Intake, IV Titration 250.667 Amount Heparin Sod,Pork in 0.45% 150.667 NaCl 25,000 unit In 0.45 % NaCl 1 250ml.bag @ 11. 023 UNITS/KG/HR 10 mls/hr IV .Q24H [facility] Rx#: [id number] metroNIDAZOLE-NS PMX 500 100 mg In Saline 1 100ml.bag @ 100 mls/hr IVPB Q6HR [facility] Rx#:[id number] Other: Voiding Method Toilet Bedside Commode # Voids 3 - Labs CBC & Chem 7: 03/22/25 01:57 03/22/25 01:57 Labs: Abnormal Lab Results - Last 24 Hours (Table) 03/22/25 03/22/25 03/22/25 Range/Units 01:57 01:57 01:57 Eosinophils # 0.03 L (0.04-0.35) X 10*3/uL APTT (22.0-30.0) sec POC Glucose (mg/dL) (70-110) mg/dL Hemoglobin A1c 7.8 H (<=6.0) % HDL Cholesterol 62.00 H (40.00-60.00) mg/dL 03/22/25 03/22/25 03/22/25 Range/Units 12:09 17:40 19:36 Eosinophils # (0.04-0.35) X 10*3/uL APTT (22.0-30.0) sec POC Glucose (mg/dL) 287 H 136 H 185 H (70-110) mg/dL Hemoglobin A1c (<=6.0) % HDL Cholesterol (40.00-60.00) mg/dL 03/23/25 03/23/25 Range/Units 04:05 05:48 Eosinophils # (0.04-0.35) X 10*3/uL APTT 48.9 H (22.0-30.0) sec POC Glucose (mg/dL) 140 H (70-110) mg/dL Hemoglobin A1c (<=6.0) % HDL Cholesterol (40.00-60.00) mg/dL
[2025-03-23 17:03] LABS: Glucose,Whole Blood 122 mg/dL (70-110)
[2025-03-23 20:22] LABS: Glucose,Whole Blood 190 mg/dL (70-110)
[2025-03-23 23:09] LABS: African American GFR (CKD) 88 (>60 ml/min/1.73 sqM); Anion Gap 11 mmol/L; Blood Urea Nitrogen 19 mg/dL (7-17); Calcium 9.7 mg/dL (8.4-10.2); Carbon Dioxide 25 mmol/L (22-30); Chloride 99 mmol/L (98-107); Glucose 191 mg/dL (74-99); Non-African American GFR(CKD) 76 (>60 ml/min/1.73 sqM); Potassium 4.3 mmol/L (3.5-5.1); Sodium 135 mmol/L (137-145)
[2025-03-24] MEDS: SODIUM CHLORIDE 0.9% 1,000 ML in EMPTY BAG 1 BAG IV SCH (04:53)
[2025-03-24 05:28] LABS: Glucose,Whole Blood 192 mg/dL (70-110)
[2025-03-24] MEDS ORDERED: HEPARIN SODIUM,PORCINE (1 ML) 2,500 UNIT in SODIUM CHLORIDE 0.9% 250 ML IRRIGATION PRN (07:00)
[2025-03-24] MEDS ORDERED: HEPARIN SODIUM,PORCINE 10,000 UNIT in SODIUM CHLORIDE 0.9% 1,000 ML IRRIGATION PRN (07:00)
[2025-03-24 08:31] LABS: HCT 43.1 % (37.2-46.3); HGB 14.3 g/dL (12.0-15.0); MCHC 33.2 g/dL (32.0-37.0); MCV 90.4 FL (80.0-97.0); Mean Platelet Volume 10.9 FL (9.5-12.2); NRBC Per 100 WBC 0 X 10*3/uL (0.00-0.01); Platelet Count 249 X 10*3/uL (140-440); RBC 4.77 X 10*6/uL (4.10-5.20); RDW 12.9 % (11.5-14.5)
[2025-03-24 08:39] LABS: ALT 52 U/L (8-44); AST 42 U/L (13-35); Albumin 4.3 g/dL (3.8-4.9); Albumin/Globulin Ratio 1.79 Ratio (1.60-3.17); Alkaline Phosphatase 136 U/L (41-126); BUN/Creat Ratio 21.44 Ratio (12.00-20.00); Blood Urea Nitrogen 19.3 mg/dL (9.0-27.0); Calcium 9.1 mg/dL (8.7-10.3); Carbon Dioxide 22.7 mmol/L (21.6-31.8); Chloride 101 mmol/L (96-109); Globulin 2.4 g/dL (1.6-3.3); Glucose 198 mg/dL (70-110); Magnesium 1.9 mg/dL (1.5-2.4); Potassium 4.7 mmol/L (3.5-5.5); Sodium 137 mmol/L (135-145); Total Bilirubin 0.4 mg/dL (0.3-1.2); Total Protein 6.7 g/dL (6.2-8.2)
[2025-03-24 12:23] LABS: Glucose,Whole Blood 122 mg/dL (70-110)
[2025-03-24] MEDS: HEPARIN SODIUM (1,000 UNIT/ML) 1,000 UNIT in SODIUM CHLORIDE 0.9% 1,000 ML IRRIGATION ONE (14:07)
[2025-03-24] MEDS: IV FLUID CONTINUATION 1,000 ML IV ONE (14:07)
[2025-03-24] MEDS: HEPARIN SODIUM,PORCINE (1 ML) 2,500 UNIT in SODIUM CHLORIDE 0.9% 250 ML IRRIGATION ONE (14:07)
[2025-03-24] MEDS: fentaNYL (PF) 50 MCG/ML 2 ML AMP IVP ONE (14:11)
[2025-03-24] MEDS: MIDAZOLAM 2 MG/2 ML VIAL IVP ONE (14:11)
[2025-03-24] MEDS: LIDOCAINE 1% INJ 10MG/ML (20 ML MDV) SQ ONE (14:19)
[2025-03-24] MEDS: VERAPAMIL SYRINGE (5 MG/10 ML) INTRAARTER ONE ×2 (14:20→14:43)
[2025-03-24] MEDS: HEPARIN SODIUM 1,000 UN/ML (10ML VL) IVP ONE (14:32)
[2025-03-24] MEDS: TICAGRELOR 90 MG TAB PO ONE (14:41)
[2025-03-24] MEDS: HEPARIN SODIUM 1,000 UN/ML (10ML VL) IV ONE (14:44)
[2025-03-24] MEDS: NITROGLYCERIN 1000MCG/10ML SYRINGE INTRACORON ONE (14:57)
[2025-03-24] MEDS: IOPAMIDOL-370 100ML BTL INJ ONE ×2 (15:03→15:14)
--- NOTE | 2025-03-24 15:22 | P.PN ---
Subjective Progress Note Date: 03/24/25 Hospital Course: Patient is a very pleasant 59-year-old female with a past medical history of hypertension and heart murmur follows with Dr. Izaguirre, hyperlipidemia, type II nvf-lukymgk-kzapotrfu diabetes mellitus, asthma/COPD not home oxygen dependent, GERD, and anxiety. She presented to the emergency department with a chief complaint of chest pain. Patient reports experiencing intermittent chest pain/pressure beginning in epigastric region radiating to left anterior chest associated by pain/tingling down left arm beginning approximately 1 week ago and progressively worsening. Patient reports today pain was persistent and unrelenting accompanied by nausea and vomiting so she came to the emergency department for evaluation. Upon arrival to our facility, patient underwent evaluation in the emergency department. Vital signs upon arrival show blood pressure 82, respiratory rate 18, temp 97.9 F, and SpO2 of 98% on room air. EKG completed showing normal sinus rhythm at 79 bpm with no significant T wave or ST abnormality showing no signs of acute ischemia upon personal review and interpretation. Chest x-ray negative for acute cardiopulmonary process. Labs completed and reviewed. CBC unremarkable. Coagulation profile normal findings. BMP showing mild prerenal azotemia with BUN of 21 otherwise normal findings. Blood glucose was elevated at 202. Magnesium was slightly low at 1.7. Liver profile showing transaminitis with AST of 39, AST of 36, and alkaline phosphatase of 173. Troponin was negative at less than 0.012. Lipase was nor mal at 101. Patient was admitted under our services with consultation to cardiology. CT abdomen and pelvis showing evidence of pneumobilia. Patient denies history of ERCP or choledocholithiasis, but did have laparoscopic cholecystectomy. Patient reports she also had to undergo dilation of her malachi iary duct because it was closed. General Surgery evaluated. Recommending increasing Protonix to 40 mg twice daily and clearing patient from their perspective at this time.Troponins trended overnight resulting at less than 0.012, and 0.069, and 0.152. proBNP 895. Lipid profile unremarkable. Hgb A1c 7.8%. Patient was started on IV heparin infusion for treatment of NSTEMI. Cardiology evaluated and taking patient for cardiac catheterization later today. Physical exam: Patient seen and fully evaluated at the bedside. She was visiting with family members at bedside awaiting to be taken down for heart cath. She currently denies having any chest pain, palpitations, shortness of breath, or any other complaints. Reports just feeling anxious about procedure and findings of procedure. Vital signs reviewed and stable. General: Nontoxicand appears stated age. No acute distress. Derm: Skin warm and dry, normal coloration for ethnicity. Head: Atraumatic, normocephalic and symmetric. Eyes: EOM's intact, no lid lag, and anicteric sclera Mouth: no lip lesions, mucus membranes moist Cardiovascular: regular rate and rhythm with normal S1S2, soft systolic murmur, positive posterior tibial pulses bilaterally, and cap refill < 2 seconds. Lungs: Respirations even, regular, and unlabored on room air. Lungs CTA bilaterally, no rhonchi, no rales, no wheezing, and no accessory muscle usage. Abdominal: soft distended, tenderness to epigastric region Ext: ROM intact. No gross muscle atrophy, no edema, no contractures Neuro: Speech clear, face symmetrical and CN II-XII grossly intact with no noted focal neuro deficits Psych: Alert and oriented to person, place, time, and situation. Appropriate and pleasant affect. Assessment and Plan of Care: NSTEMI -Cardiology discussed plan of care with cardiology POWER STATION OPERATOR and patient to undergo cardiac cath later today -Telemetry monitoring. -Troponins trended resulting at less than 0.012, and 0.069, and 0.152. proBNP 895. Lipid profile unremarkable. Hgb A1c 7.8%. -Patient was started on IV heparin infusion for treatment of NSTEMI, continue low intensity heparin infusion with close monitoring of PTT for goal therapeutic range of 45 to 79 seconds. Currently PTT slightly subtherapeutic at 43.9 -Aspirin 81 mg daily, atorvastatin 40 mg daily, losartan 25 mg twice daily, and metoprolol 25 mg twice daily. -Echocardiogram completed and currently pending results. -Patient scheduled for heart catheterization later today Epigastric pain, resolved Transaminitis Nausea and vomiting, resolved - CT abdomen and pelvis showing evidence of pneumobilia. - Patient denies history of ERCP or choledocholithiasis, but did have laparoscopic cholecystectomy. Patient reports she also had to undergo dilation of her biliary duct because it was closed. - General Surgery evaluated. Discussed plan of care with Dr. Cassidy recommending increasing Protonix to 40 mg twice daily and clearing patient from their perspective at this time. - Continue Compazine 10 mg IVP every 6 hours as needed for nausea or vomiting. Diabetes mellitus with hyperglycemia - Blood glucose 140. Hold Actos and continue patient on glycemic protocol with NovoLog sliding scale. Hemoglobin A1c 7.8% . Hypertension -Monitor vital signs and continue daily medication regimen with losartan 25 mg twice daily and metoprolol 25 mg twice daily. Hyperlipidemia -Continue daily medication regimen with atorvastatin 40 mg daily. Asthma/COPD, not in acute exacerbation -Ventolin inhaler 2 puffs 4 times daily as needed for wheezing/shortness of breath, Symbicort 160-4.5 mcg inhaler 2 puffs twice daily, and Singulair 10 mg nightly. Anxiety -Continue daily medication regimen with Lexapro 20 mg daily. Data and imaging reviewed: Labs reviewed.. CBC unremarkable with hemoglobin of 14.3, WBC count of 6.80, platelet count of 249. PTT subtherapeutic at 43.9. BMP unremarkable with exception of slightly elevated anion gap of 13.30. Blood glucose 198. Magnesium 1.9. Liver profile showing elevated AST of 42, ALT of 52, and alkaline phosphatase of 136 Vital Signs reviewed. Blood Pressure 155/78, heart rate 67, respiratory rate 16, temp 98.9 F, and SpO2 of 100% on room air. CODE STATUS: Full code DVT prophylaxis: Lovenox Discussed with: Patient, patient's family at bedside, RN, and Cardiology POWER STATION OPERATOR Anticipated discharge date: Pending clinical course Anticipated discharge place: Home Patient was seen independently by Nurse Practitioner. This document was prepared using [employer] dictation software. Please allow for errors in supply crib attendant while rare they do occur. Keith Tripp NP rendered care for this patient independently, reviewed the findings and plan as documented in the note above and agree with plan. I did not physically speak with or examine the patient on this date. Objective - Vital Signs Vital signs: Vital Signs Temp 98.9 F 03/24/25 07:45 Pulse 67 03/24/25 07:45 Resp 16 03/24/25 07:45 BP 155/78 03/24/25 07:45 Pulse Ox 100 03/24/25 07:45 FiO2 21 03/23/25 08:30 Intake & Output 03/23/25 03/24/25 03/24/25 18:59 06:59 18:59 Intake Total 232.264 Balance 232.264 Intake: Intake, IV Titration 232.264 Amount Heparin Sod,Pork in 0.45% 232.264 NaCl 25,000 unit In 0.45 % NaCl 1 250ml.bag @ 11. 023 UNITS/KG/HR 10 mls/hr IV .Q24H [facility] Rx#: [id number] Other: Voiding Method Toilet Bedside Commode # Voids 3 3 - Labs CBC & Chem 7: 03/24/25 03:58 03/24/25 03:58 Labs: Abnormal Lab Results - Last 24 Hours (Table) 03/23/25 03/23/25 03/23/25 Range/Units 12:21 17:02 20:20 APTT (22.0-30.0) sec Sodium (137-145) mmol/L Anion Gap (4.00-12.00) mmol/L BUN (7-17) mg/dL BUN/Creatinine Ratio (12.00-20.00) Ratio Glucose (74-99) mg/dL POC Glucose (mg/dL) 262 H 122 H 190 H (70-110) mg/dL AST (13-35) U/L ALT (8-44) U/L Alkaline Phosphatase (41-126) U/L 03/23/25 03/24/25 03/24/25 Range/Units 21:17 03:58 03:58 APTT 43.9 H (22.0-30.0) sec Sodium 135 L (137-145) mmol/L Anion Gap 13.30 H (4.00-12.00) mmol/L BUN 19 H (7-17) mg/dL BUN/Creatinine Ratio 21.44 H (12.00-20.00) Ratio Glucose 191 H 198 H (74-99) mg/dL POC Glucose (mg/dL) (70-110) mg/dL AST 42 H (13-35) U/L ALT 52 H (8-44) U/L Alkaline Phosphatase 136 H (41-126) U/L 03/24/25 Range/Units 05:24 APTT (22.0-30.0) sec Sodium (137-145) mmol/L Anion Gap (4.00-12.00) mmol/L BUN (7-17) mg/dL BUN/Creatinine Ratio (12.00-20.00) Ratio Glucose (74-99) mg/dL POC Glucose (mg/dL) 192 H (70-110) mg/dL AST (13-35) U/L ALT (8-44) U/L Alkaline Phosphatase (41-126) U/L
[2025-03-24] MEDS ORDERED: ZOLPIDEM 5 MG TAB PO PRN (15:25)
[2025-03-24] MEDS ORDERED: RX INFO: IV CONTRAST WAS GIVEN 1 EACH MISC MISCELLANE PRN (15:25)
[2025-03-24] MEDS ORDERED: ATROPINE SULFATE 0.1 MG/ML 10ML SYRINGE IV PRN (15:25)
[2025-03-24] MEDS ORDERED: MAG HYDROX/AL HYDROX/SIMETH 30 ML CUP PO PRN (15:25)
--- NOTE | 2025-03-24 16:05 | P.PRCINT ---
Percutaneous Coronary Int. - Percutaneous Coronary Intervention Percutaneous Coronary Intervention: PROCEDURES PERFORMED: Left heart catheterization, bilateral coronary angiography, ultrasound guided arterial access, PCI to mid LAD with 3.0 x 12 mm Xience RYAN, postdilated with 3.25 mm noncompliant balloon, intravascular ultrasound LAD INDICATION: Non-STEMI CONSENT:I have discussed the risks, benefits and alternative therapies for the above-mentioned procedure and for both sedation/analgesia as well as necessary b lood product administration, if indicated, as they pertain to this patient. The patient has indicated understanding and acceptance of the risks and procedures discussed. PROCEDURE: After the risks, benefits and alternatives of the above mentioned procedure explained in detail with the patient, informed consent was obtained. Patient was taken to the catheterization lab and prepped and draped in usual fashion. Ultrasound guidance was used to assess for arterial access. 1% lidocaine was used to anesthetize the right radial artery. Initial attempts were made at cannulating the right ulnar artery as this appeared to be somewhat larger however unsuccessful and therefore radial approach was recommended. A 6- Peruvian sheath was placed in the right radial artery using modified Seldinger technique and ultrasound guidance. There was significant tortuosity of the right subclavian artery however able to cannulate with some difficulty. Left coronary angiography was performed with a 5-Peruvian JL 3.5 catheter and right coronary angiography was performed with a 5-Peruvian AR2 catheter in various views. A 5-Peruvian AR2 catheter was inserted into the left ventricle and pressure measurements were obtained. The decision was made to perform PCI of the LAD. A 6 [place]uvian CLS 3.0 guide was used to engage the left main. A 0.014 BMW wire was advanced in the distal LAD and additional 0.014 BMW wire was advanced in the small diagonal branch. Predilation was performed with a 2.5 x 12 mm balloon. Intravascular ultrasound was performed which showed reference vessel 3.0 to 3.25 mm. A 3.0 x 12 mm drug- eluting stent was placed in the mid LAD. Intravascular ultrasound showed some underexpansion and therefore the stent was postdilated with a 3.25 x 8 mm noncompliant balloon. The wire was pulled. Final angiograms were performed. Preintervention there was 95% stenosis and PRAVEEN-3 flow and postintervention there was less than 10% stenosis and PRAVEEN-3 flow. The right radial sheath was removed and a TR band was placed with hemostasis achieved. The patient tolerated the procedure well. Patient was transported back to the post catheterization holding area in stable condition. Conscious Sedation: Patient was monitored under the direct supervision of myself for conscious sedation using Versed and fentanyl for a total duration of 56 minutes HEMODYNAMICS: Aorta: 132/72 LV: 138/8, LVEDP 14 SELECTIVE CORONARY ARTERIOGRAPHY: LEFT MAIN: The left main is a large caliber vessel which bifurcates into the LAD and circumflex. There is no significant stenosis. LEFT ANTERIOR DESCENDING CORONARY ARTERY: LAD is a large caliber vessel which wraps around to the apex. There are mild 10 to 20% proximal and mid LAD stenosis with more focal 95% stenosis at the level of the small caliber diagonal 1 branch. Otherwise there are mild luminal irregularities. LEFT CIRCUMFLEX CORONARY ARTERY: Left circumflex is a moderate caliber vessel with mild luminal irregularities. RIGHT CORONARY ARTERY: The right coronary artery is a large caliber vessel which gives off a PDA and PLV branch and is the dominant vessel. There are mild luminal irregularities with 10 to 20% stenosis FINAL IMPRESSION: 1. Mild CAD with 10 to 20% LAD stenosis and more focal 95% mid LAD stenosis 2. Normal left sided filling pressures 3. Status post PCI to mid LAD with 3.0 x 12 mm Xience RYAN, postdilated with 3.25 mm noncompliant balloon PLAN: 1. Aggressive risk factor modification per most recent ACC/AHA guidelines. 2. Continue dual antiplatelets with aspirin and Brilinta for 12 months.
[2025-03-24 17:14] LABS: Glucose,Whole Blood 159 mg/dL (70-110)
[2025-03-24 20:13] LABS: Glucose,Whole Blood 235 mg/dL (70-110)
[2025-03-24] MEDS: TICAGRELOR 90 MG TAB PO SCH (20:22)
[2025-03-24] MEDS: ACETAMINOPHEN TAB 325 MG TAB PO PRN (21:45)
[2025-03-25 01:23] VITALS: TEMP 98.7
[2025-03-25 04:16] LABS: Basophils # (A) 0.03 10*3/uL (0.00-0.10); Basophils % (A) 0.4 %; Eosinophils # (A) 0.04 10*3/uL (0.04-0.35); Eosinophils % (A) 0.5 %; HCT 41.4 % (37.2-46.3); HGB 14.2 g/dL (12.0-15.0); Lymphocytes # (A) 1.55 10*3/uL (0.90-5.00); Lymphocytes % (A) 19.8 %; MCH 29.9 pg (27.0-32.0); MCHC 34.3 g/dL (32.0-37.0); MCV 87.2 fL (80.0-97.0); Mean Platelet Volume 9.8 fL (9.5-12.2); Monocytes # (A) 0.57 10*3/uL (0.20-1.00); Monocytes % (A) 7.3 %; Neutrophils # (A) 5.62 10*3/uL (1.80-7.70); Neutrophils % (A) 71.7 %; Platelet Count 245 10*3/uL (140-440); RBC 4.75 10*6/uL (4.10-5.20); RDW 12.5 % (11.5-14.5); WBC 7.83 10*3/uL (4.50-10.00)
[2025-03-25 06:03] LABS: Glucose,Whole Blood 169 mg/dL (70-110)
[2025-03-25 08:04] LABS: Magnesium 1.9 mg/dL (1.5-2.4)
[2025-03-25 08:20] LABS: ALT 119 U/L (8-44); AST 131 U/L (13-35); Albumin 4.3 g/dL (3.8-4.9); Albumin/Globulin Ratio 1.79 Ratio (1.60-3.17); Alkaline Phosphatase 126 U/L (41-126); BUN/Creat Ratio 19.86 Ratio (12.00-20.00); Blood Urea Nitrogen 13.9 mg/dL (9.0-27.0); Calcium 9.3 mg/dL (8.7-10.3); Carbon Dioxide 22.4 mmol/L (21.6-31.8); Chloride 102 mmol/L (96-109); Globulin 2.4 g/dL (1.6-3.3); Glucose 157 mg/dL (70-110); Potassium 4.3 mmol/L (3.5-5.5); Sodium 137 mmol/L (135-145); Total Bilirubin 0.8 mg/dL (0.3-1.2); Total Protein 6.7 g/dL (6.2-8.2)
[2025-03-25 09:31] VITALS: BP 156/76; PULSE 64; RESP 16
--- NOTE | 2025-03-25 11:21 | P.PN ---
Subjective Progress Note Date: 03/25/25 Hospital Course: Patient is a very pleasant 59-year-old female with a past medical history of hypertension and heart murmur follows with Dr. Izaguirre, hyperlipidemia, type II czb-ypbemop-pjrnlcaab diabetes mellitus, asthma/COPD not home oxygen dependent, GERD, and anxiety. She presented to the emergency department with a chief complaint of chest pain. Patient reports experiencing intermittent chest pain/pressure beginning in epigastric region radiating to left anterior chest associated by pain/tingling down left arm beginning approximately 1 week ago and progressively worsening. Patient reports today pain was persistent and unrelenting accompanied by nausea and vomiting so she came to the emergency department for evaluation. Upon arrival to our facility, patient underwent evaluation in the emergency department. Vital signs upon arrival show blood pressure 82, respiratory rate 18, temp 97.9 F, and SpO2 of 98% on room air. EKG completed showing normal sinus rhythm at 79 bpm with no significant T wave or ST abnormality showing no signs of acute ischemia upon personal review and interpretation. Chest x-ray negative for acute cardiopulmonary process. Labs completed and reviewed. CBC unremarkable. Coagulation profile normal findings. BMP showing mild prerenal azotemia with BUN of 21 otherwise normal findings. Blood glucose was elevated at 202. Magnesium was slightly low at 1.7. Liver profile showing transaminitis with AST of 39, AST of 36, and alkaline phosphatase of 173. Troponin was negative at less than 0.012. Lipase was nor mal at 101. Patient was admitted under our services with consultation to cardiology. CT abdomen and pelvis showing evidence of pneumobilia. Patient denies history of ERCP or choledocholithiasis, but did have laparoscopic cholecystectomy. Patient reports she also had to undergo dilation of her malachi iary duct because it was closed. General Surgery evaluated. Recommending increasing Protonix to 40 mg twice daily and clearing patient from their perspective at this time.repeat troponin show patient patient was started on heparin infusion for treatment of NSTEMI. Troponins trended resulting at less than 0.012, and 0.069, and 0.152. proBNP 895. Lipid profile unremarkable. Hgb A1c 7.8%. Echocardiogram was completed showing a preserved EF of 55 to 60% with mild concentric LVH, mild left atrial dilation, and mild tricuspid, mitral, and aortic regurgitation. Patient was taken for cardiac catheterization on 03/24/2025. Cardiac cath revealed mild CAD with 10 to 20% LAD stenosis and more focal 95% stenosis to mid LAD. Patient underwent successful PCI to mid LAD. Physical exam: Patient seen and fully evaluated at the bedside this morning. She was resting comfortably and reports mild pain at cardiac cath access site to right wrist and has moderate bruising. Pressure dressing in place. No active bleeding. No hematoma. Vital signs reviewed and stable. General: Nontoxicand appears stated age. No acute distress. Derm: Skin warm and dry, normal coloration for ethnicity. Head: Atraumatic, normocephalic and symmetric. Eyes: EOM's intact, no lid lag, and anicteric sclera Mouth: no lip lesions, mucus membranes moist Cardiovascular: regular rate and rhythm with normal S1S2, soft systolic murmur, positive posterior tibial pulses bilaterally, and cap refill < [address] to right wrist cardiac cath access site, patient with moderate bruising, mild swelling, and tenderness. Lungs: Respirations even, regular, and unlabored on room air. Lungs CTA bilaterally, no rhonchi, no rales, no wheezing, and no accessory muscle usage. Abdominal: soft distended, tenderness to epigastric region Ext: ROM intact. No gross muscle atrophy, no edema, no contractures Neuro: Speech clear, face symmetrical and CN II-XII grossly intact with no noted focal neuro deficits Psych: Alert and oriented to person, place, time, and situation. Appropriate and pleasant affect. Assessment and Plan of Care: NSTEMI -Cardiology discussed plan of care with cardiology FOOD AND NUTRITION SERVICES ASSISTANT and awaiting clearance from water softener servicer and installer for discharge. -Telemetry monitoring. -Troponins trended resulting at less than 0.012, and 0.069, and 0.152. proBNP 895. Lipid profile unremarkable. Hgb A1c 7.8%. -Echocardiogram was completed showing a preserved EF of 55 to 60% with mild concentric LVH, mild left atrial dilation, and mild tricuspid, mitral, and aortic regurgitation. -Patient was taken for cardiac catheterization on 03/24/2025. Cardiac cath revealed mild CAD with 10 to 20% LAD stenosis and more focal 95% stenosis to mid LAD. Patient underwent successful PCI to mid LAD. -Aspirin 81 mg daily, Brilinta 90 mg twice daily, atorvastatin 40 mg daily, losartan 25 mg twice daily, and metoprolol 25 mg twice daily. -Echocardiogram completed and currently pending results. -Patient scheduled for heart catheterization later today Epigastric pain, resolved Transaminitis Nausea and vomiting, resolved - CT abdomen and pelvis showing evidence of pneumobilia. - Patient denies history of ERCP or choledocholithiasis, but did have laparoscopic cholecystectomy. Patient reports she also had to undergo dilation of her biliary duct because it was closed. - General Surgery evaluated. Discussed plan of care with Dr. Cassidy recommending increasing Protonix to 40 mg twice daily and clearing patient from their perspective at this time. - Continue Compazine 10 mg IVP every 6 hours as needed for nausea or vomiting. Diabetes mellitus with hyperglycemia - Blood glucose 140. Hold Actos and continue patient on glycemic protocol with NovoLog sliding scale. Hemoglobin A1c 7.8% . Hypertension -Monitor vital signs and continue daily medication regimen with losartan 25 mg twice daily and metoprolol 25 mg twice daily. Hyperlipidemia -Continue daily medication regimen with atorvastatin 40 mg daily. Asthma/COPD, not in acute exacerbation -Ventolin inhaler 2 puffs 4 times daily as needed for wheezing/shortness of breath, Symbicort 160-4.5 mcg inhaler 2 puffs twice daily, and Singulair 10 mg nightly. Anxiety -Continue daily medication regimen with Lexapro 20 mg daily. Data and imaging reviewed: Labs reviewed.. CBC unremarkable with hemoglobin of 14.2, WBC count of 7.83, platelet count of 245. BMP unremarkable with exception of slightly elevated anion gap of 12.60. Blood glucose 157. Magnesium 1.9. Liver profile showing elevated AST of 131 and ALT of 119. Vital Signs reviewed. Blood Pressure 156/76, heart rate 64, respiratory rate 16, temp 98.7 F, and SpO2 of 99% on room air. CODE STATUS: Full code DVT prophylaxis: Lovenox Discussed with: Patient, RN, and Cardiology FOOD AND NUTRITION SERVICES ASSISTANT Anticipated discharge date: Pending clinical course, possibly later today versus tomorrow morning. Anticipated discharge place: Home Patient was seen independently by Nurse Practitioner. This document was prepared using [employer] dictation software. Please allow for errors in space scheduler while rare they do occur. Ketih Tripp, FOOD AND NUTRITION SERVICES ASSISTANT rendered care for this patient independently, reviewed the findings and plan as documented in the note above and agree with plan. I did not physically speak with or examine the patient on this date. Objective - Vital Signs Vital signs: Vital Signs Temp 98.7 F 03/25/25 01:22 Pulse 61 03/25/25 01:22 Resp 17 03/25/25 01:22 BP 162/76 03/25/25 01:22 Pulse Ox 99 03/25/25 01:22 FiO2 21 03/23/25 08:30 Intake & Output 03/24/25 03/25/25 03/25/25 18:59 06:59 18:59 Intake Total 440 Balance 440 Intake: IV 200 Oral 240 Other: Voiding Method Toilet Toilet # Voids 2 - Labs CBC & Chem 7: 03/25/25 03:59 03/25/25 03:59 Labs: Abnormal Lab Results - Last 24 Hours (Table) 03/24/25 03/24/25 03/24/25 Range/Units 12:22 17:12 20:07 Anion Gap (4.00-12.00) mmol/L Glucose (70-110) mg/dL POC Glucose (mg/dL) 122 H 159 H 235 H (70-110) mg/dL AST (13-35) U/L ALT (8-44) U/L 03/25/25 03/25/25 Range/Units 03:59 06:00 Anion Gap 12.60 H (4.00-12.00) mmol/L Glucose 157 H (70-110) mg/dL POC Glucose (mg/dL) 169 H (70-110) mg/dL AST 131 H (13-35) U/L ALT 119 H (8-44) U/L
[2025-03-25 12:17] LABS: Glucose,Whole Blood 239 mg/dL (70-110)
--- NOTE | 2025-03-25 14:01 | P.DS ---
Providers Date of admission: 03/21/25 15:12 Expected date of discharge: 03/25/25 Attending physician: Kvng Chávez Consults: 03/21/25 15:22 Consult Physician Routine Consulting Provider: [facility] Reason/Comments: CP relieved w/ nitro, hx CAD/stent Do you want consulting provider notified?: Yes, Notify in am 03/24/25 15:25 Consult Physician Routine Consulting Provider: [facility] Consult Reason/Comments: Post Interventional patient Do you want consulting provider notified?: Already Contacted Primary care physician: Rick Ward Hospital Course: Discharge Diagnosis: NSTEMI. Troponins trended resulting at less than 0.012, and 0.069, and 0.152. proBNP 895. Lipid profile unremarkable. Hgb A1c 7.8%. Echocardiogram was completed showing a preserved EF of 55 to 60% with mild concentric LVH, mild left atrial dilation, and mild tricuspid, mitral, and aortic regurgitation. Patient was taken for cardiac catheterization on 03/24/2025. Cardiac cath revealed mild CAD with 10 to 20% LAD stenosis and more focal 95% stenosis to mid LAD. Patient underwent successful PCI to mid LAD.. Pt discharged home on Aspirin 81 mg daily, Brilinta 90 mg twice daily, atorvastatin 40 mg daily, losartan 50 mg twice daily, and metoprolol 25 mg twice daily. Epigastric pain with Transaminitis, CT abdomen and pelvis showing evidence of pneumobilia. Evaluated by general surgeon stating pneumobilia likely secondary to previous dilation of biliary duct. Nausea and vomiting, resolved Diabetes mellitus with hyperglycemia. Hemoglobin A1c 7.8%. Patient to continue Actos 30 mg daily in addition to being started on metformin 500 mg twice daily. Hypertension. Monitor vital signs and continue daily medication regimen with losartan 50 mg twice daily and metoprolol 25 mg twice daily. Hyperlipidemia. Continue daily medication regimen with atorvastatin 40 mg daily. Asthma/COPD, not in acute exacerbation. Continue Ventolin inhaler 2 puffs 4 times daily as needed for wheezing/shortness of breath, Symbicort 160-4.5 mcg inhaler 2 puffs twice daily, and Singulair 10 mg nightly. Anxiety. Continue daily medication regimen with Lexapro 20 mg daily. Hospital Course: Patient is a very pleasant 59-year-old female with a past medical history of hypertension and heart murmur follows with Dr. Izaguirre, hyperlipidemia, type II oho-[id number]-[id number] diabetes mellitus, asthma/COPD not home oxygen dependent, GERD, and anxiety. She presented to the emergency department with a chief complaint of chest pain. Patient reports experiencing intermittent chest pain/pressure beginning in epigastric region radiating to left anterior chest associated by pain/tingling down left arm beginning approximately 1 week ago and progressively worsening. Patient reports today pain was persistent and unrelenting accompanied by nausea and vomiting so she came to the emergency department for evaluation. Upon arrival to our facility, patient underwent evaluation in the emergency department. Vital signs upon arrival show blood pressure 82, respiratory rate 18, temp 97.9 F, and SpO2 of 98% on room air. EKG completed showing normal sinus rhythm at 79 bpm with no significant T wave or ST abnormality showing no signs of acute ischemia upon personal review and interpretation. Chest x-ray negative for acute cardiopulmonary process. Labs completed and reviewed. CBC unremarkable. Coagulation profile normal findings. BMP showing mild prerenal azotemia with BUN of 21 otherwise normal findings. Blood glucose was elevated at 202. Magnesium was slightly low at 1.7. Liver profile showing transaminitis with AST of 39, AST of 36, and alkaline phosphatase of 173. Troponin was negative at less than 0.012. Lipase was no rmal at 101. Patient was admitted under our services with consultation to cardiology. CT abdomen and pelvis showing evidence of pneumobilia. Patient denies history of ERCP or choledocholithiasis, but did have laparoscopic cholecystectomy. Patient reports she also had to undergo dilation of her biliary duct because it was closed. General Surgery evaluated. Recommending increasing Protonix to 40 mg twice daily and clearing patient from their perspective at this time.repeat troponin show patient patient was started on heparin infusion for treatment of NSTEMI. Troponins trended resulting at less than 0.012, and 0.069, and 0.152. proBNP 895. Lipid profile unremarkable. Hgb A1c 7.8%. Echocardiogram was completed showing a preserved EF of 55 to 60% with mild concentric LVH, mild left atrial dilation, and mild tricuspid, mitral, and aortic regurgitation. Patient was taken for cardiac catheterization on 03/24/2025. Cardiac cath revealed mild CAD with 10 to 20% LAD stenosis and more focal 95% stenosis to mid LAD. Patient underwent successful PCI to mid LAD. Pt has been cleared by cardiology perspective and is medically optimized for discharge at this time. Patient discharged home on Aspirin 81 mg daily, Brilinta 90 mg twice daily, atorvastatin 40 mg daily, losartan 50 mg twice daily, and metoprolol 25 mg twice daily. Patient to follow-up outpatient with PCP in 1 to 2 days, technical service specialist in 1 week, and general surgeon in 2 weeks. Physical exam: Vital signs reviewed and stable. General: Nontoxicand appears stated age. No acute distress. Derm: Skin warm and dry, normal coloration for ethnicity. Head: Atraumatic, normocephalic and symmetric. Eyes: EOM's intact, no lid lag, and anicteric sclera Mouth: no lip lesions, mucus membranes moist Cardiovascular: regular rate and rhythm with normal S1S2, soft systolic murmur, positive posterior tibial pulses bilaterally, and cap refill < [address] to right wrist cardiac cath access site, patient with moderate bruising, mild swelling, and tenderness. Lungs: Respirations even, regular, and unlabored on room air. Lungs CTA bilaterally, no rhonchi, no rales, no wheezing, and no accessory muscle usage. Abdominal: soft distended, tenderness to epigastric region Ext: ROM intact. No gross muscle atrophy, no edema, no contractures Neuro: Speech clear, face symmetrical and CN II-XII grossly intact with no noted focal neuro deficits Psych: Alert and oriented to person, place, time, and situation. Appropriate and pleasant affect. A total of 35 minutes of time were spent preparing this complex discharge summary. Pt was discharged on 03/25/2025 1:49 PM Patient was seen independently by Nurse Practitioner. This document was prepared using [employer] dictation software. Please allow for errors in corrosion technician while rare they do occur. Keith Tripp NP rendered care for this patient independently, reviewed the findings and plan as documented in the note above. I did not physically speak with or examine the patient on this date.. Patient Condition at Discharge: Stable Plan - Discharge Summary New Discharge Prescriptions: New Aspirin 81 mg PO DAILY tab Ticagrelor [Brilinta] 90 mg PO BID #180 tab Metoprolol Tartrate [Lopressor] 25 mg PO BID #180 tab Nitroglycerin Sl Tabs [Nitrostat] 0.4 mg SUBLINGUAL Q5M PRN #25 tab PRN Reason: Chest Pain metFORMIN HCL 500 mg PO BID 30 Days #60 tablet Continue Omeprazole [PriLOSEC] 40 mg PO DAILY Pioglitazone [Actos] 30 mg PO DAILY Atorvastatin Calcium [Lipitor] 40 mg PO DAILY Albuterol Inhaler [Ventolin Hfa Inhaler] 2 puff INHALATION RT-QID PRN PRN Reason: Shortness Of Breath Montelukast Sodium [Singulair] 10 mg PO DAILY Escitalopram [Lexapro] 20 mg PO DAILY Budesonide/Formoterol Fumarate [Symbicort 160-4.5 Mcg Inhaler] 2 puff INHALATION RT-BID Changed Losartan [Cozaar] 50 mg PO BID #180 tab Discharge Medication List Omeprazole [PriLOSEC] 40 mg PO DAILY 10/14/14 [History] Pioglitazone [Actos] 30 mg PO DAILY 11/05/18 [History] Albuterol Inhaler [Ventolin Hfa Inhaler] 2 puff INHALATION RT-QID PRN 09/13/21 [History] Atorvastatin Calcium [Lipitor] 40 mg PO DAILY 09/13/21 [History] Montelukast Sodium [Singulair] 10 mg PO DAILY 04/21/22 [History] Budesonide/Formoterol Fumarate [Symbicort 160-4.5 Mcg Inhaler] 2 puff INHALATION RT-BID 03/21/25 [History] Escitalopram [Lexapro] 20 mg PO DAILY 03/21/25 [History] Aspirin 81 mg PO DAILY tab 03/25/25 [Rx] Losartan [Cozaar] 50 mg PO BID #180 tab 03/25/25 [Rx] Metoprolol Tartrate [Lopressor] 25 mg PO BID #180 tab 03/25/25 [Rx] Nitroglycerin Sl Tabs [Nitrostat] 0.4 mg SUBLINGUAL Q5M PRN #25 tab 03/25/25 [Rx] Ticagrelor [Brilinta] 90 mg PO BID #180 tab 03/25/25 [Rx] metFORMIN HCL 500 mg PO BID 30 Days #60 tablet 03/25/25 [Rx] Follow up Appointment(s)/Referral(s): Michele Izaguirre DO [STAFF PHYSICIAN] - 04/01/25 10:30 am Rick Ward MD [Primary Care Provider] - 1-2 days Rohan Douglass DO [Doctor of Osteopathic Medicine] - 2 Weeks Patient Instructions/Handouts: Heart Attack (DC), Heart Healthy Diet (DC), Heart Catheterization (DC) Activity/Diet/Wound Care/Special Instructions: Discharge Instructions After Cardiac Catheterization with Stent Placement: Aspirin as anti-platelet therapy - Aspirin lessens the chance of heart attack and stroke. It helps prevent blood clots from forming, allowing the blood to flow more easily. Each day, you will take one 81 mg (non-enteric coated) tablet daily. Do not stop unless instructed by your doctor. Anti-platelet Therapy. -In addition to aspirin, you will take one additional anti-platelet medication daily. This will help prevent a clot from forming in your stent: Plavix (clopidogrel) -You will need to take your anti-platelet medicine every day for 12 months -Please consult your heart doctor before you stop this medicine. -They may want you to continue for a longer period of time. Statins -A statin medication lowers cholesterol levels in the blood. This helps slow the progression of heart disease. - Please take your statin medication as prescribed by your doctor. -You may be taking one of the following statins: Atorvastatin Beta blockers Your Medication: Metoprolol Is a medication that protects your heart from stress and can prevent future heart attacks. It can slow your heart rate. It can take weeks for your body to get used to a beta sol. The dose may need to be changed a few times as your body adjusts Angiotensin receptor sol (ARB) Your medication: Losartan is an angiotensin receptor sol in the ER used to reduce cardiovascular events and decrease the risk of developing diabetes, these medications are also known to prevent left ventricular remodeling after you have suffered a myocardial infarction. Do not stop taking these medicines without talking to your doctor. -Take all other medicines as directed by your doctor. Do not take any extra aspirin or ibuprofen. They can increase your risk of bleeding. Many oqqk-gfo-nlewbbj drugs contain aspirin. If you are unsure about what the drug contains, check with your pharmacist before taking it. -For mild discomfort, you may take plain Tylenol (acetaminophen). Follow dose directions, but do not take more than 4,000 mg of acetaminophen in 24 hours. Contact your doctor right away or go to the nearest hospital Emergency Room if you have: -Severe angina or chest pain. (This may be a sign of a problem with your stent.) -Excessive bruising, blood in urine/stool or black tarry stools. Healthy LifeStyle It is important to keep a heart healthy lifestyle. This can improve your long- term health and decrease your risk for heart attacks. -Managing your blood cholesterol, blood pressure, weight, and stress. -The importance of regular exercise. -Heart Healthy Diet: Include more plants in your diet. Eat lots of fresh vegetables and fresh fruits. Eat good fats: plant based oils, avocado, nuts, beans, legumes. Eat more seafood. Limit Meat. Switch to whole grains. -Avoid fried foods and animal fats and processed meats Follow up with your PCP and [facility] Thank you for allowing us to participate in your care, it was truly a pleasure having you for our patient!!! Discharge Disposition: HOME SELF-CARE
--- NOTE | 2025-03-25 14:12 | P.PN ---
Subjective Progress Note Date: 03/25/25 HPI: The patient is a 59-year-old female with a history of hypertension, dyslipidemia, type 2 diabetes, COPD, GERD, and anxiety. She presented to the ER with substantial chest pain. The pain began in the epigastric region, radiating to the left anterior chest, and has been progressively worsening over the last week. Yesterday, the pain became more persistent and was accompanied by nausea and vomiting, prompting her ER visit. Additional symptoms include headache, lightheadedness, dizziness, palpitations, shortness of breath, cough, and congestion were not present. Patient is known to Dr. Izaguirre 03/23/2024 Seen and examined at bedside this a.m. denies any cardiovascular complaints Echocardiogram did not show any regional wall motion normality and showed preserved LV size and systolic function Blood pressure is mildly elevated which she attributes to her stress being in the hospital She has given me verbal consent to have heart catheterization done tomorrow Pertinent cardiac Labs: - 02/2025: Hemoglobin 14.6, Platelet 267, Bicarbonate 21, Creatinine 0.7, Sodium 136, ALP 173, Initial Troponin negative, Repeat Troponin 0.06, 0.15 A1c 7.8 TSH 1.8 LDL 123, BNP 195 Cardiac home meds: - Losartan 25 mg, Lipitor 40 mg, Pioglitazone 30 mg Pertinent cardiac testing: - EK02/2025: Sinus rhythm, heart rate 110 bpm, non-specific minimal ST changes in lead 3 - Chest X-ray: 02/2025: No signs of significant cardiopulmonary congestion Echo from this admission shows an EF of 55%, grade 1 diastolic function, no regional wall motion normality or major valvular dysfunction 03/25 Patient seen and examined. Yesterday, patient underwent left heart catheterization which revealed mild CAD with 10 to 20% LAD stenosis and more focal 90% mid LAD stenosis. Normal left-sided filling pressures. Patient subsequently underwent PCI to the mid LAD with RYAN. Patient to continue antiplatelet therapy with aspirin and Brilinta for 12 months. Blood pressure 162/76, heart rate in the 60s, pulse ox 99% on room air. Repeat blood work reveals normal CBC. BUN 13 and creatinine 0.7. AST 131, ALT 119. Regarding Brilinta, patient is unable to afford Brilinta but there is a $10 coupon available that social work is attempting to obtain for the patient. PHYSICAL EXAMINATION: Neck: Brisk carotid upstroke, no jugular venous distention. Lungs: Clear to auscultation. Heart: Regular rate and rhythm, S1-S2, no murmur or rub. Abdomen: Soft nontender, positive bowel sounds. Extremities: No edema, intact distal pulses. Neuro: Alert, oriented, no focal deficits. Detailed neuro exam was not performed. ASSESSMENT: # NSTEMI status post LHC and stent to the mid LAD 03/24 # Substantial chest pressure, resolved # Essential hypertension # Type 2 diabetes (not on metformin) # Nausea and vomiting # Mild transaminitis, likely because of nonalcoholic fatty liver # History of laparoscopic cholecystectomy with prior reported need for dilatation of bile duct # Pneumobilia noted on CT abdomen PLAN: Continue patient on aspirin 81 mg daily, atorvastatin 40 mg daily, Lopressor 25 mg twice daily, Nitrostat as needed, Brilinta 90 mg twice daily Increase Losartan to 50 mg BID New cardiac prescriptions have been sent to patient's pharmacy Patient is cleared for discharge from cardiology and will follow-up in the office with Dr. Izaguirre in 1 week. Nurse practitioner note has been reviewed, I agree with documented findings and plan of care. Patient was seen and examined. Objective - Vital Signs Vital signs: Vital Signs Temp 98.7 F 03/25/25 01:22 Pulse 61 03/25/25 01:22 Resp 17 03/25/25 01:22 BP 162/76 03/25/25 01:22 Pulse Ox 99 03/25/25 01:22 FiO2 21 03/23/25 08:30 Intake & Output 03/24/25 03/25/25 03/25/25 18:59 06:59 18:59 Intake Total 440 Balance 440 Intake: IV 200 Oral 240 Other: Voiding Method Toilet Toilet # Voids 2 - Labs CBC & Chem 7: 03/25/25 03:59 03/25/25 03:59 Labs: Abnormal Lab Results - Last 24 Hours (Table) 03/24/25 03/24/25 03/24/25 Range/Units 12:22 17:12 20:07 Anion Gap (4.00-12.00) mmol/L Glucose (70-110) mg/dL POC Glucose (mg/dL) 122 H 159 H 235 H (70-110) mg/dL AST (13-35) U/L ALT (8-44) U/L 03/25/25 03/25/25 Range/Units 03:59 06:00 Anion Gap 12.60 H (4.00-12.00) mmol/L Glucose 157 H (70-110) mg/dL POC Glucose (mg/dL) 169 H (70-110) mg/dL AST 131 H (13-35) U/L ALT 119 H (8-44) U/L
[2025-03-25 16:01] VITALS: BMI 35.4
== END 2025-03-25 15:55 | disposition home or self-care (01) | DRG 322 ==
LOC: EC 12:51 → 6NMEDSUR 15:11 → OBSVTOIN 15:12 → 6NMEDSUR 17:14
PROVIDERS: ADMIT Student in an Organized Health Care Education/Training Program; ATTEND Student in an Organized Health Care Education/Training Program
PROC: B2111ZZ Fluoroscopy of Multiple Coronary Arteries using Low Osmolar Contrast (ICD-10-PCS; 2025-03-24)
PROC: B2151ZZ Fluoroscopy of Left Heart using Low Osmolar Contrast (ICD-10-PCS; 2025-03-24)
PROC: 027034Z Dilation of Coronary Artery, One Artery with Drug-eluting Intraluminal Device, Percutaneous Approach (ICD-10-PCS; principal; 2025-03-24 07:00)
PROC: B240ZZ3 Ultrasonography of Single Coronary Artery, Intravascular (ICD-10-PCS; 2025-03-24 07:00)
PROC: 4A023N7 Measurement of Cardiac Sampling and Pressure, Left Heart, Percutaneous Approach (ICD-10-PCS; 2025-03-24 07:00)
DX: I21.4 Non-ST elevation (NSTEMI) myocardial infarction (principal); E11.65 Type 2 diabetes mellitus with hyperglycemia; J44.89 Other specified chronic obstructive pulmonary disease; K27.9 Peptic ulcer, site unspecified, unspecified as acute or chronic, without hemorrhage or perforation; I10 Essential (primary) hypertension; K76.0 Fatty (change of) liver, not elsewhere classified; I25.10 Atherosclerotic heart disease of native coronary artery without angina pectoris; E78.5 Hyperlipidemia, unspecified; F41.9 Anxiety disorder, unspecified; K21.9 Gastro-esophageal reflux disease without esophagitis; Z79.51 Long term (current) use of inhaled steroids; Z79.84 Long term (current) use of oral hypoglycemic drugs; Z79.899 Other long term (current) drug therapy; Z88.0 Allergy status to penicillin; Z91.040 Latex allergy status; Z87.891 Personal history of nicotine dependence
CPT/HCPCS: 36415; 71046; 74177; 80048; 80053; 80061; 83036; 83690; 83735; 83880; 84443; 84484; 85025; 85027; 85610; 85730; 92978; 93005; 93306; 93458; 94640; 94760; 96365; 96366; 96367; 96368; 96375; 99285